=== PATIENT | male | born 1955 | race Caucasian/White ===

== ENCOUNTER 2017-12-08 22:41 | Inpatient (IN) | payer BC, MEDICARE ==
[2017-12-08] MEDS ORDERED: SODIUM CHLORIDE 0.9% 1,000 ML IV STA ×2 (23:20)
[2017-12-08] MEDS ORDERED: PIPERACILLIN-TAZOBACTAM 3.375 GM in DEXTROSE/WATER 1 50ML.BAG IVPB STA (23:49)
--- NOTE | 2017-12-08 23:56 | ED ---
General Adult HPI - General Chief complaint: Recheck/Abnormal Lab/Rx Stated complaint: Foot pain Time Seen by Provider: 12/08/17 22:50 Source: patient, RN notes reviewed, old records reviewed Mode of arrival: wheelchair Limitations: physical limitation - History of Present Illness Initial comments: 62-year-old male with history of left [id number] amputation, diabetic ulcer presents today with concerns of an ulcer and infection over his right toes. His was about to trim his toenails and noticed that his fifth toe was black. She also noticed ulceration in infection between the second and third toes. Patient has no fevers or chills. He reports some ankle pain and foot swelling. He states that he does have neuropathy doesn't have much pain in regards of the ulcerations.Patient denies any recent fever, chills, shortness of breath, chest pain, back pain, abdominal pain, nausea vomiting, numbness or tingling, dysuria or hematuria, constipation or diarrhea, headaches or visual changes, or any other current symptoms - Related Data Home Medications Medication Instructions Recorded Confirmed Atorvastatin [Lipitor] 10 mg PO HS 12/17/15 12/08/17 Famotidine [Pepcid] 20 mg PO BID 12/17/15 12/08/17 Insulin Aspart [NovoLOG] See Protocol SQ AC-TID 12/17/15 12/08/17 Insulin Detemir [Levemir] 18 unit SQ HS 12/17/15 12/08/17 Meloxicam [Mobic] 7.5 mg PO DAILY 12/17/15 12/08/17 Metoprolol Tartrate [Lopressor] 25 mg PO BID 12/17/15 12/08/17 Levothyroxine Sodium [Synthroid] 137 mcg PO DAILY 12/08/17 12/08/17 Lisinopril [Zestril] 10 mg PO DAILY 12/08/17 12/08/17 amLODIPine [Norvasc] 5 mg PO DAILY 12/08/17 12/08/17 metFORMIN HCL 1,000 mg PO BID 12/08/17 12/08/17 Allergies Allergy/AdvReac Type Severity Reaction Status Date / Time No Known Allergies Allergy Verified 12/08/17 23:27 Review of Systems ROS Statement: Those systems with pertinent positive or pertinent negative responses have been documented in the HPI. ROS Other: All systems not noted in ROS Statement are negative. Past Medical History Past Medical History: CVA/TIA, Diabetes Mellitus, Hyperlipidemia, Hypertension, Memory Impairment, Osteoarthritis (OA), Thyroid Disorder Additional Past Medical History / Comment(s): stroke age 51 left with short term memory problems. 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 Past Psychological History: Depression Smoking Status: Former smoker Past Alcohol Use History: Occasional Past Drug Use History: None Reported - Past Family History Mother Family Medical History: COPD Additional Family Medical History / Comment(s): age 83 from COPD Father Family Medical History: Coronary Artery Disease (CAD), Diabetes Mellitus, Myocardial Infarction ([place]) Additional Family Medical History / Comment(s): age 68 approx from [place] General Exam Limitations: physical limitation General appearance: alert, in no apparent distress Head exam: Present: atraumatic, normocephalic, normal inspection Eye exam: Present: normal appearance, PERRL, EOMI. Absent: scleral icterus, conjunctival injection, periorbital swelling ENT exam: Present: normal exam, normal oropharynx, mucous membranes moist Neck exam: Present: normal inspection. Absent: tenderness, meningismus, lymphadenopathy Respiratory exam: Present: normal lung sounds bilaterally. Absent: respiratory distress, wheezes, rales, rhonchi, stridor Cardiovascular Exam: Present: regular rate, normal rhythm, normal heart sounds. Absent: systolic murmur, diastolic murmur, rubs, gallop, clicks GI/Abdominal exam: Present: soft, normal bowel sounds. Absent: distended, tenderness, guarding, rebound, rigid Extremities exam: Present: full ROM, normal capillary refill. Absent: normal inspection, tenderness, pedal edema, joint swelling, calf tenderness Right Lower Leg exam: Present: normal inspection, full ROM Ankle exam: Present: swelling. Absent: normal inspection Foot/Toe exam: Present: swelling. Absent: normal inspection (Patient has a necrotic black and fifth toe. He 2 cm x 1 cm ulceration between the second and third digits. Culture obtained.), tenderness Neurovascular tendon exam: Present: no vascular compromise Gait: not tested/not observed Back exam: Present: normal inspection Neurological exam: Present: alert, oriented X3, CN II-XII intact Psychiatric exam: Present: normal affect, normal mood Skin exam: Present: warm, dry, intact, normal color. Absent: rash Course Vital Signs 12/08/17 12/08/17 12/09/17 22:45 22:56 00:42 Temperature 97.3 F L 98.6 F 97.8 F Pulse Rate 82 84 84 Respiratory 18 16 16 Rate Blood Pressure 179/86 159/75 147/81 O2 Sat by Pulse 99 96 96 Oximetry Medical Decision Making - Medical Decision Making Patient is a 62-year-old diabetic male presents emergency Department with a black and fifth toe and ulceration between a second and third digit. They just noticed this today will merit cutting his toenails. Patient does report that his toe was black and for the past 3 days. No fevers. Vital signs within normal limits. Lactic acid blood cultures obtained. Patient started on IV Zosyn. White blood count mildly elevated at 11,000. X-rays reviewed and showed no evidence of osteomyelitis. Patient's history of the left leg with a [id number] amputation related to old diabetic ulcers concern for worsening status. Patient later admitted to the hospital with consults to vascular surgery, infectious disease. Patient will also be started on vancomycin. All questions answered. Family agrees and understands treatment plan. - Lab Data Result diagrams: 12/09/17 00:30 12/09/17 00:30 Lab Results 12/09/17 12/09/17 Range/Units 00:30 00:30 WBC 11.7 H (3.8-10.6) k/uL RBC 3.85 L (4.30-5.90) m/uL Hgb 11.1 L (13.0-17.5) gm/dL Hct 33.4 L (39.0-53.0) % MCV 86.6 (80.0-100.0) fL MCH 28.8 (25.0-35.0) pg MCHC 33.3 (31.0-37.0) g/dL RDW 14.0 (11.5-15.5) % Plt Count 498 H (150-450) k/uL Neutrophils % 69 % Lymphocytes % 19 % Monocytes % 5 % Eosinophils % 6 % Basophils % 0 % Neutrophils # 8.0 H (1.3-7.7) k/uL Lymphocytes # 2.2 (1.0-4.8) k/uL Monocytes # 0.5 (0-1.0) k/uL Eosinophils # 0.7 (0-0.7) k/uL Basophils # 0.0 (0-0.2) k/uL Sodium 143 (137-145) mmol/L Potassium 3.9 (3.5-5.1) mmol/L Chloride 103 (98-107) mmol/L Carbon Dioxide 24 (22-30) mmol/L Anion Gap 16 mmol/L BUN 21 H (9-20) mg/dL Creatinine 0.90 (0.66-1.25) mg/dL Est GFR (CKD-EPI)AfAm >90 (>60 ml/min/1.73 sqM) Est GFR (CKD-EPI)NonAf >90 (>60 ml/min/1.73 sqM) Glucose 98 (74-99) mg/dL Calcium 9.8 (8.4-10.2) mg/dL Total Bilirubin 0.2 (0.2-1.3) mg/dL AST 22 (17-59) U/L ALT 22 (21-72) U/L Alkaline Phosphatase 78 (38-126) U/L C-Reactive Protein 10.0 H (<10.0) mg/L Total Protein 6.4 (6.3-8.2) g/dL Albumin 3.6 (3.5-5.0) g/dL - Radiology Data Radiology results: report reviewed X-ray of the foot shows no evidence of osteomyelitis. Disposition Clinical Impression: Gangrene of toe of right foot, Diabetic ulcer of right foot, Diabetes, Hx of BKA, Hypertension Disposition: ADMITTED IP TO THIS [facility] Condition: Stable Is patient prescribed a controlled substance at d/c from ED?: No If prescribed controlled substance>3 days was MAPS reviewed?: No When asked, does pt state using other controlled substances?: No Referrals: Myles Barnes MD [Primary Care Provider] - 1-2 days Time of Disposition: 01:54
--- NOTE | 2017-12-09 00:24 | XR ---
EXAMINATION TYPE: XR foot complete RT DATE OF EXAM: 12/09/2017 COMPARISON: NONE HISTORY: Diabetes and pain TECHNIQUE: 3 views FINDINGS: There is old ununited fracture distal fifth metatarsal. I see no acute fracture nor disloca tion. There is mild hammertoe deformity. There is a plantar calcaneal spur. I see no focal bone destr uction. IMPRESSION: No acute abnormality of the right foot. No sign of osteomyelitis.
--- NOTE | 2017-12-09 00:25 | XR ---
EXAMINATION TYPE: XR ankle complete RT DATE OF EXAM: 12/09/2017 COMPARISON: NONE HISTORY: Diabetes and pain TECHNIQUE: 3 views FINDINGS: Ankle mortise is anatomic. There is some soft tissue swelling around the ankle joint. I see no fracture. IMPRESSION: Soft tissue swelling. No fracture seen. Plantar calcaneal spur.
[2017-12-09 01:15] LABS: Basophils % (A) 0 %; Eosinophils # (A) 0.7 k/uL (0-0.7); Eosinophils % (A) 6 %; HCT 33.4 % (39.0-53.0); HGB 11.1 gm/dL (13.0-17.5); Lymphocytes # (A) 2.2 k/uL (1.0-4.8); Lymphocytes % (A) 19 %; MCH 28.8 pg (25.0-35.0); MCHC 33.3 g/dL (31.0-37.0); MCV 86.6 fL (80.0-100.0); Mean Platelet Volume 7.5; Monocytes # (A) 0.5 k/uL (0-1.0); Monocytes % (A) 5 %; Neutrophils % (A) 69 %; Platelet Count 498 k/uL (150-450); RBC 3.85 m/uL (4.30-5.90); WBC 11.7 k/uL (3.8-10.6)
[2017-12-09 01:33] LABS: ALT 22 U/L (21-72); AST 22 U/L (17-59); Albumin 3.6 g/dL (3.5-5.0); Alkaline Phosphatase 78 U/L (38-126); Anion Gap 16 mmol/L; Blood Urea Nitrogen 21 mg/dL (9-20); Calcium 9.8 mg/dL (8.4-10.2); Carbon Dioxide 24 mmol/L (22-30); Chloride 103 mmol/L (98-107); Glucose 98 mg/dL (74-99); Potassium 3.9 mmol/L (3.5-5.1); Sodium 143 mmol/L (137-145); Total Bilirubin 0.2 mg/dL (0.2-1.3); Total Protein 6.4 g/dL (6.3-8.2)
[2017-12-09] MEDS ORDERED: oxyCODONE-APAP 5-325MG 1 EACH TAB PO PRN (01:56)
[2017-12-09] MEDS ORDERED: VANCOMYCIN IV PER PHARMACY 1 EACH MISC MISCELLANE PRN (01:56)
[2017-12-09] MEDS ORDERED: IBUPROFEN 400 MG TAB PO PRN (01:56)
[2017-12-09] MEDS ORDERED: KETOROLAC 30 MG/ML 1 ML VIAL IVP PRN (01:56)
[2017-12-09] MEDS ORDERED: NALOXONE 0.4 MG/ML 1 ML VIAL IV PRN ×2 (01:56→15:29)
[2017-12-09] MEDS ORDERED: ONDANSETRON 4 MG/2 ML VIAL IVP PRN (01:56)
[2017-12-09 02:06] LABS: Erythrocyte Sedimentation Rate 51 mm/hr (0-15)
[2017-12-09] MEDS: SODIUM CHLORIDE 0.9% 1,000 ML IV SCH ×3 (04:02→18:01)
[2017-12-09] MEDS: VANCOMYCIN 1,250 MG in SODIUM CHLORIDE 0.9% 250 ML IVPB SCH ×2 (04:27→15:39)
[2017-12-09] MEDS: LEVOTHYROXINE 137 MCG TAB PO SCH (05:56)
[2017-12-09 07:26] LABS: Glucose,Whole Blood 354 mg/dL (75-99)
[2017-12-09] MEDS: metFORMIN 500 MG TAB PO SCH ×2 (07:56→17:58)
[2017-12-09] MEDS: PIPERACILLIN-TAZOBACTAM 3.375 GM in DEXTROSE/WATER 1 50ML.BAG IVPB SCH ×3 (07:56→23:56)
[2017-12-09] MEDS: MELOXICAM 7.5 MG TAB PO SCH (07:56)
[2017-12-09] MEDS: INSULIN ASPART 100 UNIT/ML 1 ML 10 ML VIAL SQ SCH ×5 (07:56→22:42)
[2017-12-09] MEDS: FAMOTIDINE 20 MG TAB PO SCH ×2 (07:56→22:42)
[2017-12-09] MEDS: amLODIPine 5 MG TAB PO SCH (07:56)
[2017-12-09] MEDS: METOPROLOL TARTRATE 25 MG TAB PO SCH ×2 (07:57→22:42)
[2017-12-09] MEDS: LISINOPRIL 10 MG TAB PO SCH (07:57)
[2017-12-09 11:59] LABS: Glucose,Whole Blood 208 mg/dL (75-99)
--- NOTE | 2017-12-09 12:48 | P.GSCN ---
History of Present Illness History of present illness: 52-year-old diabetic male history of 4 diabetes, history of peripheral neuropathy, patient came to the emergency room with history of 4 gangrene changes noted on the right foot fifth toe, also noted some ulceration with infection of the second and third toe. Patient has been getting prosthesis for the left below-knee amputation. Medical history history of diabetes, history of 4 hypertension, history of CVA in the past, Surgical history patient had a cholecystectomy, history of for left below-knee amputation 2008 Neck examination supple no bruit appreciated Chest is clear first and second sound normal Abdomen soft nontender vascular examination brachial radial and femoral pulses are palpable bilateral dorsal pedis post tibial is not palpable on the right left BK stump is healing there is a gangrene changes noted on the right foot fifth toe and some ulceration noted on the second third toe Plan is angiogram of the right leg, IV antibiotic and local wound care. Follow with you thank you Past Medical History Past Medical History: CVA/TIA, Diabetes Mellitus, Hyperlipidemia, Hypertension, Memory Impairment, Osteoarthritis (OA), Thyroid Disorder Additional Past Medical History / Comment(s): stroke age 51 left with short term memory problems. History of Any Multi-Drug Resistant Organisms: MRSA Year Discovered:: 12/17/15 MDRO Source:: Left Leg Past Surgical History: Cholecystectomy, Ear Surgery Additional Past Surgical History / Comment(s): Left BKA 2008 r/t gangrene Past Anesthesia/Blood Transfusion Reactions: Previous Problems w/ Anesthesia Additional Past Anesthesia/Blood Transfusion Reaction / Comm: states had problems with anesthesia after gall bladder surgery, problems waking up or breathing cessation. Past Psychological History: Depression Additional Psychological History / Comment(s): no current problems Smoking Status: Former smoker Past Alcohol Use History: Occasional Past Drug Use History: None Reported - Past Family History Mother Family Medical History: COPD Additional Family Medical History / Comment(s): age 83 from COPD Father Family Medical History: Coronary Artery Disease (CAD), Diabetes Mellitus, Myocardial Infarction ([place]) Additional Family Medical History / Comment(s): age 68 approx from [place] Medications and Allergies Home Medications Medication Instructions Recorded Confirmed Type Atorvastatin [Lipitor] 10 mg PO HS 12/17/15 12/08/17 History Famotidine [Pepcid] 20 mg PO BID 12/17/15 12/08/17 History Insulin Aspart [NovoLOG] See Protocol SQ AC-TID 12/17/15 12/08/17 History Insulin Detemir [Levemir] 18 unit SQ HS 12/17/15 12/08/17 History Meloxicam [Mobic] 7.5 mg PO DAILY 12/17/15 12/08/17 History Metoprolol Tartrate [Lopressor] 25 mg PO BID 12/17/15 12/08/17 History Levothyroxine Sodium [Synthroid] 137 mcg PO DAILY 12/08/17 12/08/17 History Lisinopril [Zestril] 10 mg PO DAILY 12/08/17 12/08/17 History amLODIPine [Norvasc] 5 mg PO DAILY 12/08/17 12/08/17 History metFORMIN HCL 1,000 mg PO BID 12/08/17 12/08/17 History Allergies Allergy/AdvReac Type Severity Reaction Status Date / Time No Known Allergies Allergy Verified 12/08/17 23:27 Surgical - Exam Vital Signs Temp Pulse Resp BP Pulse Ox 97.3 F L 82 18 179/86 99 12/08/17 22:45 12/08/17 22:45 12/08/17 22:45 12/08/17 22:45 12/08/17 22:45 Results - Labs 12/09/17 00:30 12/09/17 00:30 Abnormal Lab Results - Last 24 Hours (Table) 12/09/17 12/09/17 12/09/17 Range/Units 00:30 00:30 07:13 WBC 11.7 H (3.8-10.6) k/uL RBC 3.85 L (4.30-5.90) m/uL Hgb 11.1 L (13.0-17.5) gm/dL Hct 33.4 L (39.0-53.0) % Plt Count 498 H (150-450) k/uL Neutrophils # 8.0 H (1.3-7.7) k/uL ESR 51 H (0-15) mm/hr BUN 21 H (9-20) mg/dL POC Glucose (mg/dL) 354 H (75-99) mg/dL C-Reactive Protein 10.0 H (<10.0) mg/L 12/09/17 Range/Units 11:55 WBC (3.8-10.6) k/uL RBC (4.30-5.90) m/uL Hgb (13.0-17.5) gm/dL Hct (39.0-53.0) % Plt Count (150-450) k/uL Neutrophils # (1.3-7.7) k/uL ESR (0-15) mm/hr BUN (9-20) mg/dL POC Glucose (mg/dL) 208 H (75-99) mg/dL C-Reactive Protein (<10.0) mg/L Microbiology - Last 24 Hours (Table) 12/09/17 00:30 Wound Culture - Preliminary Foot - Right Diabetes panel 12/09/17 Range/Units 00:30 Sodium 143 (137-145) mmol/L Potassium 3.9 (3.5-5.1) mmol/L Chloride 103 (98-107) mmol/L Carbon Dioxide 24 (22-30) mmol/L BUN 21 H (9-20) mg/dL Creatinine 0.90 (0.66-1.25) mg/dL Glucose 98 (74-99) mg/dL Calcium 9.8 (8.4-10.2) mg/dL AST 22 (17-59) U/L ALT 22 (21-72) U/L Alkaline Phosphatase 78 (38-126) U/L Total Protein 6.4 (6.3-8.2) g/dL Albumin 3.6 (3.5-5.0) g/dL Calcium panel 12/09/17 Range/Units 00:30 Calcium 9.8 (8.4-10.2) mg/dL Albumin 3.6 (3.5-5.0) g/dL Pituitary panel 12/09/17 Range/Units 00:30 Sodium 143 (137-145) mmol/L Potassium 3.9 (3.5-5.1) mmol/L Chloride 103 (98-107) mmol/L Carbon Dioxide 24 (22-30) mmol/L BUN 21 H (9-20) mg/dL Creatinine 0.90 (0.66-1.25) mg/dL Glucose 98 (74-99) mg/dL Calcium 9.8 (8.4-10.2) mg/dL Adrenal panel 12/09/17 Range/Units 00:30 Sodium 143 (137-145) mmol/L Potassium 3.9 (3.5-5.1) mmol/L Chloride 103 (98-107) mmol/L Carbon Dioxide 24 (22-30) mmol/L BUN 21 H (9-20) mg/dL Creatinine 0.90 (0.66-1.25) mg/dL Glucose 98 (74-99) mg/dL Calcium 9.8 (8.4-10.2) mg/dL Total Bilirubin 0.2 (0.2-1.3) mg/dL AST 22 (17-59) U/L ALT 22 (21-72) U/L Alkaline Phosphatase 78 (38-126) U/L Total Protein 6.4 (6.3-8.2) g/dL Albumin 3.6 (3.5-5.0) g/dL
[2017-12-09] MEDS ORDERED: LACTULOSE 20 GM/30 ML CUP PO PRN (15:29)
[2017-12-09] MEDS ORDERED: CALCIUM CARBONATE 500 MG CHEWABLE PO PRN (15:29)
[2017-12-09] MEDS ORDERED: MAGNESIUM HYDROXIDE 2,400 MG/10 ML CUP PO PRN (15:29)
[2017-12-09] MEDS: ACETAMINOPHEN TAB 325 MG TAB PO PRN (16:55)
[2017-12-09 17:16] LABS: Glucose,Whole Blood 370 mg/dL (75-99)
--- NOTE | 2017-12-09 18:15 | HP ---
HISTORY AND PHYSICAL DATE OF SERVICE: 12/09/17 PRESENTING COMPLAINT: Right toe wounds. HISTORY OF PRESENTING COMPLAINT: This is a pleasant 62-year-old patient Dr. Barnes who presented here with his . Chronic stable medical conditions include diabetes, hyperlipidemia, hypertension, osteoarthritis, hypothyroid. The patient is hard of hearing and also has left below- knee amputation. The patient's was going to clip his nails and discovered that he had gangrene of the right toe and also wound, a kissing wound, between the right 2nd and 3rd toe. The patient states he has only noticed that for about 3 to 4 days but probably has had it much longer, some pain is present. Denies any obvious fever. Patient admitted for the same. Patient has a prosthesis on the left leg. REVIEW OF SYSTEMS: CONSTITUTIONAL: None. HEENT: Hard of hearing. RESPIRATORY: None. CARDIOVASCULAR: None. GASTROINTESTINAL: None. GENITOURINARY: None. MUSCULOSKELETAL: Pain in the joints. DERMATOLOGICAL: As above. LYMPHATICS: None. PSYCHIATRY: Occasionally forgetful from the stroke. NEUROLOGICAL: None. EXTREMITIES: Left below-knee amputation. PAST MEDICAL HISTORY: Stroke leading to some memory impairment, diabetes, hypertension, hyperlipidemia, osteoarthritis, hypothyroid, hard of hearing. PAST SURGICAL HISTORY: Cholecystectomy, left below-knee 2009 due to gangrene. SOCIAL HISTORY: The patient smoked 2 to 3 packs a day for about 40 years, stopped in 2008. The patient used to work as a jet engine mechanic. , alcohol occasionally. FAMILY HISTORY: COPD. HOME MEDICATIONS: Norvasc 5 mg a day, Zestril 10 mg a day, Pepcid 20 mg b.i.d., Lipitor 10 mg q.h.s., Mobic 7.5 p.o. daily, Synthroid 137 mcg p.o. daily, Levemir 18 units subcu q.h.s., NovoLog before meals t.i.d., metformin 1000 mg p.o. b.i.d., Lopressor 25 p.o. b.i.d. ALLERGIES: None. PHYSICAL EXAMINATION: VITAL SIGNS ON PRESENTATION: Temperature 97.3, pulse 82, respiratory 18, blood pressure 139/86, repeat 159/75, pulse ox 99% on room air. GENERAL APPEARANCE: Average built, sitting up, tired appearing. EYES: Pupils equal. Conjunctivae normal. HEENT: External appearance of nose and ears normal. Oral cavity normal. NECK: JVD not raised. Mass not palpable. RESPIRATORY: Effort normal, lungs decreased breath sounds. CARDIOVASCULAR: First and second sounds, no edema. ABDOMEN: Soft, nontender. Liver and spleen not palpable. LYMPHATIC: No lymph node palpable in neck or axillae. PSYCHIATRY: Alert and oriented x3. Mood and affect normal. NEUROLOGICAL: Pupils equal. Cranial nerves grossly intact. Power grossly intact. EXTREMITIES: Left below-knee amputation. The patient has a prosthesis. Right foot, patient has got severe onychomycosis of the nails. There is a gangrenous changes of the right little toe and also macerated ulcer, a kissing-type, adjoining the 2nd and 3rd toe in the space in between that. INVESTIGATIONS: White count 11.7, hemoglobin 11.1, platelets 498. Potassium 3.9, BUN 21, creatinine 0.9. ASSESSMENT: 1. Acute gangrene of the right foot little toe and cellulitis/wound infected, purulent, between the right 2nd and 3rd toe. 2. Severe onychomycosis of the toenails. 3. Diabetes mellitus type 2, chronically on insulin. 4. Hyperlipidemia. 5. Hypertension. 6. Primary osteoarthritis. 7. Hypothyroid. 8. Left below-knee amputation. 9. Chronic hard of hearing. PLAN: The patient is put on IV Zosyn and vancomycin. Consultation was made to Dr. Ugarte from [facility]. Accu-Cheks will be followed. The patient will probably need a vascular study. Care was discussed with the patient and . Questions were answered. Local wound care per Dr. Brian and Dr. Ugarte. MMODL / IJN: [id number] /
[2017-12-09] MEDS: ALPRAZolam 0.25 MG TAB PO PRN (19:38)
[2017-12-09] MEDS ORDERED: MELATONIN 3 MG TABLET PO PRN (21:00)
[2017-12-09] MEDS: INSULIN DETEMIR 100 UNIT/ML 10 ML VIAL SQ SCH (22:42)
[2017-12-09] MEDS: ATORVASTATIN 10 MG TAB PO SCH (22:42)
[2017-12-09 22:58] LABS: Glucose,Whole Blood 242 mg/dL (75-99)
--- NOTE | 2017-12-09 23:14 | P.CONS ---
History of Present Illness - Reason for Consult Consult date: 12/09/17 - Chief Complaint ulcer right foot - History of Present Illness 62 year old male with a history of peripherial vascular disease and left below- the-knee amputation in 2007 due to his severe peripheral vascular disease. It is related at that time with the help of the patient's about his history, that he had severe peripheral vascular disease that was caused from his tobacco use. After his amputation he stopped his heavy tobacco use and also stopped his alcohol abuse. Since that time he's had an improvement of his status. However recently the went to do some foot care and noticed that there was some gangrenous changes to the right foot fifth toe into the interspace between the third and fourth toe. With that he was brought in the hospital for further intervention. He has been seen by vascular surgery and angiography has been scheduled to evaluate the blood flow to the right leg since the surgical plan can be devised. Primary goal will be to salvage the right lower extremity, double amputees often have great difficulty with ambulation and often in a relatively short period of time. Antibiotic therapy to be advised. Review of Systems HEENT:Denies headache or acute visual change. Denies sinus or mouth discomforts. Denies neck stiffness or pain. Denies significant oral cavity pain. Denies difficulty on swallowing. Lungs: Denies significant shortness of breath, cough, sputum production, or hemoptysis. Cardiovascular: Denies significant shortness of breath, chest pain, chest wall pain, orthopnea, dyspnea on exertion, syncope Gastrointestinal:Denies nausea, vomiting, diarrhea, constipation, hematemesis, melena, hematochezia. No no significant change of bowel habit noticed. Musculoskeletal: denies significant myalgias or arthralgias. No new joint swelling. Denies new back pain. Skin: As per the HPI gangrene right foot Neuro: Denies headache or visual change. In the last few days having increasing difficulties ambulation because of the new changes to his right foot. Patient's relates that the patient has had some Psychiatric:Denies anxiety or depression. Endocrine: Significant fatigue and weight loss Past Medical History Past Medical History: CVA/TIA, Diabetes Mellitus, Hyperlipidemia, Hypertension, Memory Impairment, Osteoarthritis (OA), Thyroid Disorder Additional Past Medical History / Comment(s): stroke age 51 left with short term memory problems. History of Any Multi-Drug Resistant Organisms: MRSA Year Discovered:: 12/17/15 MDRO Source:: Left Leg Past Surgical History: Cholecystectomy, Ear Surgery Additional Past Surgical History / Comment(s): Left BKA 2009 r/t gangrene Past Anesthesia/Blood Transfusion Reactions: Previous Problems w/ Anesthesia Additional Past Anesthesia/Blood Transfusion Reaction / Comm: states had problems with anesthesia after gall bladder surgery, problems waking up or breathing cessation. Past Psychological History: Depression Additional Psychological History / Comment(s): lives with the and the family home. Medically disabled. Tobacco smoker until 2007. Alcohol abuse until 2007 which is when he had a leg amputation. Pet dog in the home. No experience. 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 Smoking Status: Former smoker Past Alcohol Use History: Occasional Past Drug Use History: None Reported - Past Family History Mother Family Medical History: COPD Additional Family Medical History / Comment(s): age 83 from COPD Father Family Medical History: Coronary Artery Disease (CAD), Diabetes Mellitus, Myocardial Infarction (DE) Additional Family Medical History / Comment(s): age 68 approx from [place] Medications and Allergies Home Medications and Allergies Comment(s): Current Medications Acetaminophen (Tylenol Tab) 650 mg PO Q6HR PRN PRN Reason: Mild Pain or Fever > 100.5 Last Admin: 12/09/17 16:55 Dose: 650 mg Alprazolam (Xanax) 0.25 mg PO Q6HR PRN PRN Reason: Anxiety Last Admin: 12/09/17 19:38 Dose: 0.25 mg Amlodipine Besylate (Norvasc) 5 mg PO DAILY [facility] Last Admin: 12/09/17 07:56 Dose: 5 mg Atorvastatin Calcium (Lipitor) 10 mg PO HS [facility] Last Admin: 12/09/17 22:42 Dose: 10 mg Calcium Carbonate/Glycine (Tums) 1,000 mg PO Q4HR PRN PRN Reason: Dyspepsia Famotidine (Pepcid) 20 mg PO BID [facility] Last Admin: 12/09/17 22:42 Dose: 20 mg Piperacillin/Tazobactam/ (Dextrose 3.375 gm/ IV Solution) 50 mls @ 12.5 mls/hr IVPB Q8H [facility] Last Admin: 12/09/17 16:56 Dose: 12.5 mls/hr Sodium Chloride (Saline 0.9%) 1,000 mls @ 120 mls/hr IV .Q8H20M [facility] Last Admin: 12/09/17 18:01 Dose: 120 mls/hr Vancomycin HCl 1,250 mg/ (Sodium Chloride) 250 mls @ 125 mls/hr IVPB Q12H [facility] Last Admin: 12/09/17 15:39 Dose: 125 mls/hr Insulin Aspart (Novolog) 0 unit SQ ACHS JOANN PRN Reason: Protocol Last Admin: 12/09/17 22:42 Dose: 3 unit Insulin Aspart (Novolog) 4 unit SQ AC-TID [facility] Last Admin: 12/09/17 17:58 Dose: 4 unit Insulin Detemir (Levemir) 18 unit SQ HS [facility] Last Admin: 12/09/17 22:42 Dose: 18 unit Ketorolac Tromethamine (Toradol) 30 mg IVP Q6HR PRN PRN Reason: Moderate Pain Stop: 12/14/17 01:57 Lactulose (Cephulac) 20 gm PO DAILY PRN PRN Reason: Constipation Levothyroxine Sodium (Synthroid) 137 mcg PO 0630 [facility] Last Admin: 12/09/17 05:56 Dose: 137 mcg Lisinopril (Zestril) 10 mg PO DAILY [facility] Last Admin: 12/09/17 07:57 Dose: 10 mg Magnesium Hydroxide (Milk Of Magnesia) 2,400 mg PO DAILY PRN PRN Reason: Constipation Melatonin (Melatonin) 3 mg PO HS PRN PRN Reason: Insomnia Meloxicam (Mobic) 7.5 mg PO DAILY [facility] Last Admin: 12/09/17 07:56 Dose: 7.5 mg Metformin HCl (Glucophage) 1,000 mg PO AC-BID [facility] Last Admin: 12/09/17 17:58 Dose: 1,000 mg Metoprolol Tartrate (Lopressor) 25 mg PO BID [facility] Last Admin: 12/09/17 22:42 Dose: 25 mg Naloxone HCl (Narcan) 0.2 mg IV Q2M PRN PRN Reason: Opioid Reversal Ondansetron HCl (Zofran) 4 mg IVP Q8HR PRN PRN Reason: Nausea And Vomiting Oxycodone/Acetaminophen (Percocet 5-325) 1 each PO Q4HR PRN PRN Reason: Severe Pain Home Medications Medication Instructions Recorded Confirmed Type Atorvastatin [Lipitor] 10 mg PO HS 12/17/15 12/08/17 History Famotidine [Pepcid] 20 mg PO BID 12/17/15 12/08/17 History Insulin Aspart [NovoLOG] See Protocol SQ AC-TID 12/17/15 12/08/17 History Insulin Detemir [Levemir] 18 unit SQ HS 12/17/15 12/08/17 History Meloxicam [Mobic] 7.5 mg PO DAILY 12/17/15 12/08/17 History Metoprolol Tartrate [Lopressor] 25 mg PO BID 12/17/15 12/08/17 History Levothyroxine Sodium [Synthroid] 137 mcg PO DAILY 12/08/17 12/08/17 History Lisinopril [Zestril] 10 mg PO DAILY 12/08/17 12/08/17 History amLODIPine [Norvasc] 5 mg PO DAILY 12/08/17 12/08/17 History metFORMIN HCL 1,000 mg PO BID 12/08/17 12/08/17 History Allergies Allergy/AdvReac Type Severity Reaction Status Date / Time No Known Allergies Allergy Verified 12/08/17 23:27 Physical Exam Vitals: Vital Signs Temp Pulse Pulse Resp BP BP Pulse Ox 12/09/17 15:00 98.9 F 89 16 124/69 95 12/09/17 07:00 97.1 F L 101 H 20 139/76 95 12/09/17 03:30 97.2 F L 92 18 153/82 96 12/09/17 03:13 98.7 F 92 16 172/83 96 12/09/17 01:55 97.9 F 86 16 139/80 96 12/09/17 00:42 97.8 F 84 16 147/81 96 Intake and Output 12/09/17 12/09/17 12/10/17 14:59 22:59 06:59 Intake Total 200 Balance 200 Intake: Oral 200 Other: # Voids 1 # Bowel Movements 0 Weight 73.482 kg 62-year-old male who looks older than his stated age HEENT: Anicteric conjunctiva are pink and moist nasal mucosa grossly intact without significant lesions, there is no thrush. Poor dentition Neck: The neck is supple without significant lymphadenopathy or thyromegaly. Lungs: Symmetrical air entry with evidence of some expiratory wheezes but no vaishnavi bronchial sounds no dullness or egophony Heart: Regular rate and rhythm with an audible S1-S2, no S3 loud S4 There is no significant murmur click or rub, PMI was nondisplaced. Abdomen: Mildly obese Positive bowel sounds soft and nontender without palpable masses or organomegaly. There was no guarding or rebound. Extremities: The upper extremities have excellent pulses they are symmetric, no significant petechiae or telangiectasia. No splinter hemorrhages were noted. Left lower extremity residual limb is without ulceration. Right lower extremity has evidence of the gangrenous changes to the fifth toe as well as interspaced between toes 3 and 4 with some mild erythema without purulent drainage Neuro: Patient is awake alert oriented to person, is aware of his child and grandchild in the room but is not doing well with time and his exact location. He is able to move upper and lower extremities on command Results CBC & Chem 7: 12/09/17 00:30 12/09/17 00:30 Labs: Abnormal Lab Results - Last 24 Hours (Table) 12/09/17 12/09/17 12/09/17 Range/Units 00:30 00:30 07:13 WBC 11.7 H (3.8-10.6) k/uL RBC 3.85 L (4.30-5.90) m/uL Hgb 11.1 L (13.0-17.5) gm/dL Hct 33.4 L (39.0-53.0) % Plt Count 498 H (150-450) k/uL Neutrophils # 8.0 H (1.3-7.7) k/uL ESR 51 H (0-15) mm/hr BUN 21 H (9-20) mg/dL POC Glucose (mg/dL) 354 H (75-99) mg/dL C-Reactive Protein 10.0 H (<10.0) mg/L 12/09/17 12/09/17 12/09/17 Range/Units 11:55 17:14 22:37 WBC (3.8-10.6) k/uL RBC (4.30-5.90) m/uL Hgb (13.0-17.5) gm/dL Hct (39.0-53.0) % Plt Count (150-450) k/uL Neutrophils # (1.3-7.7) k/uL ESR (0-15) mm/hr BUN (9-20) mg/dL POC Glucose (mg/dL) 208 H 370 H 242 H (75-99) mg/dL C-Reactive Protein (<10.0) mg/L Microbiology - Last 24 Hours (Table) 12/09/17 00:30 Gram Stain - Preliminary Foot - Right Wound Culture - Preliminary Laboratory Results WBC 11.7 k/uL (3.8-10.6) H 12/09/17 00:30 RBC 3.85 m/uL (4.30-5.90) L 12/09/17 00:30 Hgb 11.1 gm/dL (13.0-17.5) L 12/09/17 00:30 Hct 33.4 % (39.0-53.0) L 12/09/17 00:30 MCV 86.6 fL (80.0-100.0) 12/09/17 00:30 MCH 28.8 pg (25.0-35.0) 12/09/17 00:30 MCHC 33.3 g/dL (31.0-37.0) 12/09/17 00:30 RDW 14.0 % (11.5-15.5) 12/09/17 00:30 Plt Count 498 k/uL (150-450) H 12/09/17 00:30 Neutrophils % 69 % 12/09/17 00:30 Lymphocytes % 19 % 12/09/17 00:30 Monocytes % 5 % 12/09/17 00:30 Eosinophils % 6 % 12/09/17 00:30 Basophils % 0 % 12/09/17 00:30 Neutrophils # 8.0 k/uL (1.3-7.7) H 12/09/17 00:30 Lymphocytes # 2.2 k/uL (1.0-4.8) 12/09/17 00:30 Monocytes # 0.5 k/uL (0-1.0) 12/09/17 00:30 Eosinophils # 0.7 k/uL (0-0.7) 12/09/17 00:30 Basophils # 0.0 k/uL (0-0.2) 12/09/17 00:30 ESR 51 mm/hr (0-15) H 12/09/17 00:30 Sodium 143 mmol/L (137-145) 12/09/17 00:30 Potassium 3.9 mmol/L (3.5-5.1) 12/09/17 00:30 Chloride 103 mmol/L (98-107) 12/09/17 00:30 Carbon Dioxide 24 mmol/L (22-30) 12/09/17 00:30 Anion Gap 16 mmol/L 12/09/17 00:30 BUN 21 mg/dL (9-20) H 12/09/17 00:30 Creatinine 0.90 mg/dL (0.66-1.25) 12/09/17 00:30 Est GFR (CKD-EPI)AfAm >90 (>60 ml/min/1.73 sqM) 12/09/17 00:30 Est GFR (CKD-EPI)NonAf >90 (>60 ml/min/1.73 sqM) 12/09/17 00:30 Glucose 98 mg/dL (74-99) 12/09/17 00:30 POC Glucose (mg/dL) 242 mg/dL (75-99) H 12/09/17 22:37 POC Glu Weight Tester ID Nancy Solitario 12/09/17 22:37 Calcium 9.8 mg/dL (8.4-10.2) 12/09/17 00:30 Total Bilirubin 0.2 mg/dL (0.2-1.3) 12/09/17 00:30 AST 22 U/L (17-59) 12/09/17 00:30 ALT 22 U/L (21-72) 12/09/17 00:30 Alkaline Phosphatase 78 U/L (38-126) 12/09/17 00:30 C-Reactive Protein 10.0 mg/L (<10.0) H 12/09/17 00:30 Total Protein 6.4 g/dL (6.3-8.2) 12/09/17 00:30 Albumin 3.6 g/dL (3.5-5.0) 12/09/17 00:30 Microbiology 12/09/17 00:30 Foot - Right Gram Stain - Preliminary 12/09/17 00:30 Foot - Right Wound Culture - Preliminary Assessment and Plan (1) Gangrene of toe of right foot Narrative/Plan: 62-year-old male has a history of prior heavy tobacco use and alcohol use did have a left [id number] amputation done in 2007 which point in time he discontinued alcohol and tobacco use. His and modestly well over time but now developed evidence of gangrenous changes of the fifth toe and interspace between to screen for on the right foot. He has been seen by vascular surgery. The case is discussed with them. The plan is for angiography to evaluate his vessels to ensure that there is adequate blood flow before further surgical plans to the foot are provided. Overall goal is foot salvage given the left [id number] amputation has occurred. Amputation of more than just told the right foot could result in lack of ability to ambulate which would then have a direct impact on his longevity. Antibiotic therapy as well as Zosyn and vancomycin until we have further data. The course of antibiotic therapy after discharge will be determined by his response to therapy and the extent of the involvement of the infection after surgical interventions. Improve glucose control, adequate protein intake and a multivitamin along be helpful. Current Visit: Yes Status: Acute Code(s): I96 - GANGRENE, NOT ELSEWHERE CLASSIFIED SNOMED Code(s): 80498580827717681 (2) Diabetic ulcer of right foot Current Visit: Yes Status: Acute Code(s): E11.621 - TYPE 2 DIABETES MELLITUS WITH FOOT ULCER; L97.519 - NON-PRS CHRONIC ULCER OTH PRT RIGHT FOOT W UNSP SEVERITY SNOMED Code(s): 159009085 (3) Peripheral vascular disease in diabetes mellitus Current Visit: Yes Status: Acute Code(s): E11.51 - TYPE 2 DIABETES W DIABETIC PERIPHERAL ANGIOPATH W/O GANGRENE SNOMED Code(s): 59742667
[2017-12-10] MEDS: SODIUM CHLORIDE 0.9% 1,000 ML IV SCH ×3 (02:25→23:15)
[2017-12-10] MEDS: VANCOMYCIN 1,250 MG in SODIUM CHLORIDE 0.9% 250 ML IVPB SCH ×2 (04:21→16:42)
[2017-12-10] MEDS: PIPERACILLIN-TAZOBACTAM 3.375 GM in DEXTROSE/WATER 1 50ML.BAG IVPB SCH ×3 (07:40→23:09)
[2017-12-10] MEDS: LEVOTHYROXINE 137 MCG TAB PO SCH (07:42)
[2017-12-10] MEDS: metFORMIN 500 MG TAB PO SCH (07:42)
[2017-12-10] MEDS: FAMOTIDINE 20 MG TAB PO SCH ×2 (07:42→19:53)
[2017-12-10] MEDS: LISINOPRIL 10 MG TAB PO SCH (07:43)
[2017-12-10] MEDS: MELOXICAM 7.5 MG TAB PO SCH (07:43)
[2017-12-10] MEDS: METOPROLOL TARTRATE 25 MG TAB PO SCH ×2 (07:43→19:54)
[2017-12-10] MEDS: amLODIPine 5 MG TAB PO SCH (07:43)
[2017-12-10] MEDS: INSULIN ASPART 100 UNIT/ML 1 ML 10 ML VIAL SQ SCH ×8 (07:46→22:30)
[2017-12-10 07:49] LABS: Glucose,Whole Blood 86 mg/dL (75-99)
[2017-12-10] MEDS ORDERED: SODIUM CHLORIDE 0.9% 500 ML IV ONE (09:12)
[2017-12-10] MEDS ORDERED: LIDOCAINE 2% INJ 20 MG/ML SQ ONE (09:16)
[2017-12-10] MEDS ORDERED: MIDAZOLAM 2 MG/2 ML VIAL IVP ONE (09:16)
[2017-12-10] MEDS ORDERED: IODIXANOL 320 MG/ML 100 ML INTRAARTER ONE (09:36)
--- NOTE | 2017-12-10 10:46 | OP ---
OPERATIVE REPORT PREOP DIAGNOSES: Gangrene right foot toes. PROCEDURE PERFORMED: Right leg angiogram. SEDATION: Conscious sedation time is 20 minutes. OPERATIVE PROCEDURE: This patient came with gangrene of the 5th toe and ulcer on the 2nd and 3rd toe. The patient had a left BK amputation done in the past. On examination, femorals are palpable, posterior dorsalis pedis is not palpable. Patient brought to the roofing laborer. Right groin was prepped and draped in the usual sterile manner. 1% lidocaine was given and we gave conscious sedation. Micropuncture introduced right common femoral artery. Micropuncture guide wire was passed and 4 Malawian dilator advanced on top of the guidewire, flushed with heparin saline and with hand injection on the tip of the right leg angiogram was performed. Right common iliac, external iliac, and common femoral was visualized which was patent. Profunda was found to be patent. Superficial femoral artery was found to be patent. The patient has a severe atherosclerosis occlusive disease involving the popliteal and tibioperoneal trunk. Anterior tibial was found to be patent. The posterior tibial has proximally narrowing and some atherosclerosis disease proximally which is opacified at the lower 1/3 of the leg. Anterior tibial is patent all the way down to the foot. Peroneal is patent. IMPRESSION: Severe atherosclerosis occlusive disease of the popliteal and tibioperoneal trunk with narrowing of the posterior tibial to the upper 1/3 of the leg. Sheath was removed. Pressure was held. Patient tolerated the procedure well. PLAN: We will do venous mapping and we will discuss if the patient can be treated with atherectomy. MMODL / IJN: [id number] /
[2017-12-10 12:04] LABS: Glucose,Whole Blood 63 mg/dL (75-99)
[2017-12-10 12:04] LABS: Glucose,Whole Blood 51 mg/dL (75-99)
[2017-12-10 12:28] LABS: Glucose,Whole Blood 99 mg/dL (75-99)
[2017-12-10] MEDS: MULTIVITAMINS, THERA 1 EACH TAB PO SCH (12:41)
[2017-12-10] MEDS: ACETAMINOPHEN TAB 325 MG TAB PO PRN (12:47)
[2017-12-10] MEDS ORDERED: SODIUM CHLORIDE 0.9% 1,000 ML IV SCH (16:15)
[2017-12-10 16:49] LABS: Glucose,Whole Blood 443 mg/dL (75-99)
[2017-12-10] MEDS ORDERED: INSULIN ASPART 100 UNIT/ML 1 ML 10 ML VIAL SQ ONE (17:15)
[2017-12-10 18:10] LABS: Glucose,Whole Blood 368 mg/dL (75-99)
[2017-12-10] MEDS: ALPRAZolam 0.25 MG TAB PO PRN (18:57)
[2017-12-10] MEDS ORDERED: HALOPERIDOL LACTATE 5 MG/ML 1 ML VIAL IM ONE (19:17)
[2017-12-10] MEDS: ATORVASTATIN 10 MG TAB PO SCH (19:53)
[2017-12-10 21:11] LABS: Glucose,Whole Blood 180 mg/dL (75-99)
--- NOTE | 2017-12-10 22:10 | PN ---
PROGRESS NOTE DATE OF SERVICE: December 10, 2017. PRESENT COMPLAINT: Right toe wounds. INTERVAL HISTORY: This patient presented with gangrene and wounds on the right foot. I spoke to Dr. Ugarte this morning. He did an angiogram and expecting to do atherectomy. The patient also getting antibiotics late in the evening. Patient got delirious and somewhat agitated, although sugars were running high. I did order some Haldol and extra insulin. REVIEW OF SYSTEMS: Done for constitutional, cardiovascular, GI, pulmonary, psych: relevant findings as above. CURRENT MEDICATIONS: Reviewed that include vancomycin, IV Zosyn. PHYSICAL EXAMINATION: Temperature 98.2, pulse 94, respiratory 18, blood pressure 130/71, pulse ox 96% on room air. GENERAL APPEARANCE: Lying in bed, awake. Eyes pupils are equal. Conjunctivae normal. HEENT external appearance of nose and ears normal. Oral cavity normal. Neck JVD not raised. Mass not palpable. Respiratory: Lungs decreased breath sounds. Cardiovascular 1st and 2nd sounds normal. No edema. ABDOMEN: Soft, nontender. Liver and spleen not palpable. Psychiatry: The patient knows that he is in [place], not sure why he is here. He thinks he is here because his is him. Otherwise, patient is moving all 4 limbs. Extremities: Left below-knee amputation. Right foot changes unchanged. INVESTIGATIONS: Accu-Cheks 368, 180. ASSESSMENT: 1. Acute gangrene of the right foot little toe and cellulitis with kissing ulcer between the right 2nd and 3rd toe. 2. Severe peripheral artery disease, detailed in angiogram results. 3. Severe onychomycosis of the toenails. 4. Diabetes mellitus type 2, chronically on insulin, uncontrolled with hyperglycemia. 5. Hyperlipidemia. 6. Essential hypertension. 7. Primary osteoarthritis. 8. Hypothyroid. 9. Left below-knee amputation. 10.Chronic hard of hearing. 11.Acute delirium probably from infection. PLAN: Patient is given an extra dose of insulin. Also given Haldol. I have ordered a sitter and will turn off any stimuli including television audio. Follow. MMODL / IJN: [id number] /
[2017-12-10] MEDS: INSULIN DETEMIR 100 UNIT/ML 10 ML VIAL SQ SCH (23:01)
[2017-12-11] MEDS: VANCOMYCIN 1,250 MG in SODIUM CHLORIDE 0.9% 250 ML IVPB SCH ×2 (03:07→16:21)
[2017-12-11] MEDS: LEVOTHYROXINE 137 MCG TAB PO SCH (06:17)
[2017-12-11 06:24] LABS: Glucose,Whole Blood 78 mg/dL (75-99)
[2017-12-11] MEDS: INSULIN ASPART 100 UNIT/ML 1 ML 10 ML VIAL SQ SCH ×7 (06:24→21:57)
[2017-12-11] MEDS: amLODIPine 5 MG TAB PO SCH (08:26)
[2017-12-11] MEDS: FAMOTIDINE 20 MG TAB PO SCH ×2 (08:26→19:37)
[2017-12-11] MEDS: LISINOPRIL 10 MG TAB PO SCH (08:26)
[2017-12-11] MEDS: MELOXICAM 7.5 MG TAB PO SCH (08:27)
[2017-12-11] MEDS: MULTIVITAMINS, THERA 1 EACH TAB PO SCH (08:27)
[2017-12-11] MEDS: METOPROLOL TARTRATE 25 MG TAB PO SCH ×2 (08:27→19:36)
[2017-12-11] MEDS: PIPERACILLIN-TAZOBACTAM 3.375 GM in DEXTROSE/WATER 1 50ML.BAG IVPB SCH ×2 (09:13→14:56)
--- NOTE | 2017-12-11 09:59 | IR ---
Fluoroscopy HISTORY: Nonhealing foot wound 2.2 minutes fluoroscopy time supplied to the referring clinician. 263 intraoperative C-arm images do cument the procedure. See dictated report from vascular surgery.
[2017-12-11 11:54] LABS: Glucose,Whole Blood 137 mg/dL (75-99)
[2017-12-11] MEDS ORDERED: VANCOMYCIN TROUGH DUE 1 EACH MISC MISCELLANE ONE (15:00)
[2017-12-11 16:53] LABS: Glucose,Whole Blood 336 mg/dL (75-99)
[2017-12-11] MEDS: QUEtiapine 25 MG TAB PO SCH (19:36)
[2017-12-11] MEDS: ATORVASTATIN 10 MG TAB PO SCH (19:37)
[2017-12-11] MEDS: ALPRAZolam 0.25 MG TAB PO PRN (19:37)
[2017-12-11 20:39] LABS: Glucose,Whole Blood 191 mg/dL (75-99)
[2017-12-11] MEDS: INSULIN DETEMIR 100 UNIT/ML 10 ML VIAL SQ SCH (21:58)
--- NOTE | 2017-12-11 22:02 | PN ---
PROGRESS NOTE DATE OF SERVICE: 12/11/2017 PRESENTING COMPLAINT: Right toe wound. INTERVAL HISTORY: This is a patient who presented with gangrene of the right little toe and wounds on the right foot. Patient was seen this morning. Less delirious than the previous night. Family at the bedside. Patient due to go for atherectomy later in the day. REVIEW OF SYSTEMS: Done for constitutional, cardiovascular, GI, pulmonary; relevant findings as above. CURRENT MEDICATIONS: Reviewed. They include IV Zosyn. PHYSICAL EXAMINATION: Temperature 96.8, pulse 75, respiration 18, blood pressure 175/85, pulse ox 99% on room air. GENERAL APPEARANCE: Lying in bed, comfortable. EYES: Pupils equal. Conjunctivae normal. HEENT: Conjunctivae normal. NECK: JVD not raised. Mass not palpable. RESPIRATORY: Effort normal. LUNGS: Decreased breath sounds. CARDIOVASCULAR: First and second sounds normal. No edema. ABDOMEN: Soft, nontender. Liver and spleen not palpable. PSYCHIATRY: Patient knows that he is in the hospital, recognizes family. He is not exactly sure why he is here. INVESTIGATIONS: Accu-Cheks noted. ASSESSMENT: 1. Acute gangrene of the right foot little toe and cellulitis with kissing ulcer between the right second and third toe. 2. Severe peripheral arterial disease. Details in angiogram results. 3. Severe onychomycosis of the toenails. 4. Diabetes mellitus, type 2, chronically on insulin, uncontrolled, with hyp glycemia. 5. Hyperlipidemia. 6. Essential hypertension. 7. Primary osteoarthritis. 8. Hypothyroid. 9. Left below-knee amputation. 10.Chronic hard of hearing. 11.Acute delirium from infection. PLAN: Care was discussed with the patient and family at the bedside. Patient is awaiting atherectomy this afternoon. Will start the patient on Seroquel at night. MMODL / IJN: [id number] /
[2017-12-12] MEDS: PIPERACILLIN-TAZOBACTAM 3.375 GM in DEXTROSE/WATER 1 50ML.BAG IVPB SCH ×4 (01:16→23:31)
[2017-12-12] MEDS: VANCOMYCIN 1,250 MG in SODIUM CHLORIDE 0.9% 250 ML IVPB SCH ×2 (06:05→15:48)
[2017-12-12] MEDS: SODIUM CHLORIDE 0.9% 1,000 ML IV SCH ×2 (06:05→20:29)
[2017-12-12] MEDS: LEVOTHYROXINE 137 MCG TAB PO SCH (06:43)
[2017-12-12 06:52] LABS: Glucose,Whole Blood 76 mg/dL (75-99)
[2017-12-12] MEDS: INSULIN ASPART 100 UNIT/ML 1 ML 10 ML VIAL SQ SCH ×7 (07:59→21:52)
[2017-12-12 09:09] LABS: Anion Gap 13 mmol/L; Blood Urea Nitrogen 9 mg/dL (9-20); Calcium 9.5 mg/dL (8.4-10.2); Carbon Dioxide 27 mmol/L (22-30); Chloride 104 mmol/L (98-107); Glucose 106 mg/dL (74-99); Potassium 4.2 mmol/L (3.5-5.1); Sodium 144 mmol/L (137-145)
[2017-12-12] MEDS: METOPROLOL TARTRATE 25 MG TAB PO SCH ×2 (09:39→20:29)
[2017-12-12] MEDS: FAMOTIDINE 20 MG TAB PO SCH ×2 (09:40→20:29)
[2017-12-12] MEDS: MELOXICAM 7.5 MG TAB PO SCH (09:40)
[2017-12-12] MEDS: amLODIPine 5 MG TAB PO SCH (09:41)
[2017-12-12] MEDS: LISINOPRIL 10 MG TAB PO SCH (09:41)
[2017-12-12 11:33] LABS: Glucose,Whole Blood 322 mg/dL (75-99)
[2017-12-12] MEDS: MULTIVITAMINS, THERA 1 EACH TAB PO SCH (12:08)
[2017-12-12] MEDS: ALPRAZolam 0.25 MG TAB PO PRN (15:55)
[2017-12-12 17:18] LABS: Glucose,Whole Blood 329 mg/dL (75-99)
[2017-12-12] MEDS: metFORMIN 500 MG TAB PO SCH (17:45)
[2017-12-12] MEDS: ATORVASTATIN 10 MG TAB PO SCH (20:29)
[2017-12-12] MEDS: QUEtiapine 25 MG TAB PO SCH (20:29)
[2017-12-12 21:08] LABS: Glucose,Whole Blood 190 mg/dL (75-99)
--- NOTE | 2017-12-12 21:08 | PN ---
PROGRESS NOTE DATE OF SERVICE: December 12, 2017. PRESENTING COMPLAINT: Right foot wound. INTERVAL HISTORY: This is a patient presented with gangrene right little toe and wounds right foot found to have significant disease on the angiogram. Patient had been getting delirious. Last night I started the patient on Seroquel. He did sleep rather well and is doing much better this morning. at the bedside. REVIEW OF SYSTEMS: Done for constitutional, cardiovascular, GI, pulmonary and relevant findings as above. CURRENT MEDICATIONS: Reviewed that include IV Zosyn and vancomycin. PHYSICAL EXAMINATION: Temperature 98.6, pulse 83, respirations 18, blood pressure 138/76, pulse ox 99% on room air. General appearance: Sitting up in bed, comfortable, awake, cheerful. Eyes pupils are equal. Conjunctivae normal. HEENT: External appearance of nose and ears normal. Oral cavity normal. Neck JVD not raised. Mass not palpable. Respiratory effort normal. Lungs decreased breath sounds. Cardiovascular: First and second sounds normal. No edema. ABDOMEN: Soft, nontender. Liver and spleen not palpable. Psychiatry AO x3. Mood and affect normal. Extremities: Right foot in a dressing. Left below-knee amputation. INVESTIGATIONS: Potassium 4.2, BUN and creatinine is normal. Accu-Cheks noted. ASSESSMENT: 1. Acute gangrene of the right foot little toe and cellulitis with kissing ulcer between the right 2nd and 3rd toe. 2. Severe peripheral arterial disease as noted in the angiogram. 3. Severe and onychomycosis of the toenails. 4. Diabetes mellitus type 2, chronically on insulin, uncontrolled with hyperglycemia. 5. Hyperlipidemia. 6. Essential hypertension. 7. Primary osteoarthritis. 8. Hypothyroid. 9. Left below-knee amputation. 10.Chronic hard of hearing. 11.Acute delirium from infection much improved. PLAN: Continue medication and treatment plan. The patient doing well on the Seroquel. The patient also will discuss with Dr. Brian and with Dr. Ugarte in terms of further plan of action. This was conveyed to the . Follow from there. MMODL / IJN: [id number] /
[2017-12-12] MEDS: INSULIN DETEMIR 100 UNIT/ML 10 ML VIAL SQ SCH (21:52)
--- NOTE | 2017-12-12 23:59 | P.PN ---
Subjective Progress Note Date: 12/12/17 62 year old male with a history of peripherial vascular disease and left below- the-knee amputation in 2007 due to his severe peripheral vascular disease. It is related at that time with the help of the patient's about his history, that he had severe peripheral vascular disease that was caused from his tobacco use. After his amputation he stopped his heavy tobacco use and also stopped his alcohol abuse. Since that time he's had an improvement of his status. However recently the went to do some foot care and noticed that there was some gangrenous changes to the right foot fifth toe into the interspace between the third and fourth toe. With that he was brought in the hospital for further intervention. He has been seen by vascular surgery and angiography has been scheduled to evaluate the blood flow to the right leg since the surgical plan can be devised. Primary goal will be to salvage the right lower extremity, double amputees often have great difficulty with ambulation and often in a relatively short period of time. Antibiotic therapy to be advised. 12/12/2017 patient is a angiography performed and appears to need peripheral arthrectomy procedures which are yet to be scheduled. The patient has significant agitation. With the nurse present we try to calm the patient and have him understand the significant importance of his current care. Current goal is salvage of the right lower extremity see does not have another amputation. Objective - Vital Signs Vital signs: Vital Signs Temp 97.4 F L 12/12/17 23:14 Pulse 71 12/12/17 23:14 Resp 20 12/12/17 23:14 BP 96/60 12/12/17 23:14 Pulse Ox 97 12/12/17 23:14 Intake & Output 12/12/17 12/12/17 12/13/17 06:59 18:59 06:59 Intake Total 1800 Balance 1800 Weight 66.5 kg Intake: Intake, IV Titration 300 Amount Piperacillin-Tazobactam 3 50 .375 gm In Dextrose/Water 1 50ml.bag @ 12.5 mls/hr IVPB Q8H JOANN Rx#: [id number] Vancomycin 1,250 mg In 250 Sodium Chloride 0.9% 250 ml @ 125 mls/hr IVPB Q12H JOANN Rx#:[id number] Oral 1500 Other: Voiding Method Urinal Urinal # Voids 2 5 # Bowel Movements 1 - Exam 62-year-old male who looks older than his stated age HEENT: Anicteric conjunctiva are pink and moist nasal mucosa grossly intact without significant lesions, there is no thrush. Poor dentition Neck: The neck is supple without significant lymphadenopathy or thyromegaly. Lungs: Symmetrical air entry with evidence of some expiratory wheezes but no vaishnavi bronchial sounds no dullness or egophony Heart: Regular rate and rhythm with an audible S1-S2, no S3 loud S4 There is no significant murmur click or rub, PMI was nondisplaced. Abdomen: Mildly obese Positive bowel sounds soft and nontender without palpable masses or organomegaly. There was no guarding or rebound. Extremities: The upper extremities have excellent pulses they are symmetric, no significant petechiae or telangiectasia. No splinter hemorrhages were noted. Left lower extremity residual limb is without ulceration. Right lower extremity has evidence of the gangrenous changes to the fifth toe as well as interspaced between toes 3 and 4 with some mild erythema without purulent drainage Neuro: Patient is awake and alert however has been with very poor behavior, nurses are utilizing a sitter to keep him in bed and keep him safe - Labs CBC & Chem 7: 12/09/17 00:30 12/12/17 08:25 Labs: Abnormal Lab Results - Last 24 Hours (Table) 12/12/17 12/12/17 12/12/17 Range/Units 08:25 11:30 17:11 Glucose 106 H (74-99) mg/dL POC Glucose (mg/dL) 322 H 329 H (75-99) mg/dL 12/12/17 Range/Units 20:54 Glucose (74-99) mg/dL POC Glucose (mg/dL) 190 H (75-99) mg/dL Microbiology - Last 24 Hours (Table) 12/09/17 00:30 Blood Culture - Preliminary Blood No Growth after 72 hours Laboratory Results WBC 11.7 k/uL (3.8-10.6) H 12/09/17 00:30 RBC 3.85 m/uL (4.30-5.90) L 12/09/17 00:30 Hgb 11.1 gm/dL (13.0-17.5) L 12/09/17 00:30 Hct 33.4 % (39.0-53.0) L 12/09/17 00:30 MCV 86.6 fL (80.0-100.0) 12/09/17 00:30 MCH 28.8 pg (25.0-35.0) 12/09/17 00:30 MCHC 33.3 g/dL (31.0-37.0) 12/09/17 00:30 RDW 14.0 % (11.5-15.5) 12/09/17 00:30 Plt Count 498 k/uL (150-450) H 12/09/17 00:30 Neutrophils % 69 % 12/09/17 00:30 Lymphocytes % 19 % 12/09/17 00:30 Monocytes % 5 % 12/09/17 00:30 Eosinophils % 6 % 12/09/17 00:30 Basophils % 0 % 12/09/17 00:30 Neutrophils # 8.0 k/uL (1.3-7.7) H 12/09/17 00:30 Lymphocytes # 2.2 k/uL (1.0-4.8) 12/09/17 00:30 Monocytes # 0.5 k/uL (0-1.0) 12/09/17 00:30 Eosinophils # 0.7 k/uL (0-0.7) 12/09/17 00:30 Basophils # 0.0 k/uL (0-0.2) 12/09/17 00:30 ESR 51 mm/hr (0-15) H 12/09/17 00:30 Sodium 144 mmol/L (137-145) 12/12/17 08:25 Potassium 4.2 mmol/L (3.5-5.1) 12/12/17 08:25 Chloride 104 mmol/L (98-107) 12/12/17 08:25 Carbon Dioxide 27 mmol/L (22-30) 12/12/17 08:25 Anion Gap 13 mmol/L 12/12/17 08:25 BUN 9 mg/dL (9-20) 12/12/17 08:25 Creatinine 0.89 mg/dL (0.66-1.25) 12/12/17 08:25 Est GFR (CKD-EPI)AfAm >90 (>60 ml/min/1.73 sqM) 12/12/17 08:25 Est GFR (CKD-EPI)NonAf >90 (>60 ml/min/1.73 sqM) 12/12/17 08:25 Glucose 106 mg/dL (74-99) H 12/12/17 08:25 POC Glucose (mg/dL) 190 mg/dL (75-99) H 12/12/17 20:54 POC Glu Entry Level Automotive Technician ID Lashay Cheng 12/12/17 20:54 Calcium 9.5 mg/dL (8.4-10.2) 12/12/17 08:25 Total Bilirubin 0.2 mg/dL (0.2-1.3) 12/09/17 00:30 AST 22 U/L (17-59) 12/09/17 00:30 ALT 22 U/L (21-72) 12/09/17 00:30 Alkaline Phosphatase 78 U/L (38-126) 12/09/17 00:30 C-Reactive Protein 10.0 mg/L (<10.0) H 12/09/17 00:30 Total Protein 6.4 g/dL (6.3-8.2) 12/09/17 00:30 Albumin 3.6 g/dL (3.5-5.0) 12/09/17 00:30 Vancomycin Trough 15.4 ug/mL 12/11/17 14:55 Microbiology 12/09/17 00:30 Blood Blood Culture - Preliminary No Growth after 72 hours 12/09/17 00:30 Foot - Right Gram Stain - Final 12/09/17 00:30 Foot - Right Wound Culture - Final Beta Hemolytic Streptococcus F Assessment and Plan (1) Gangrene of toe of right foot Narrative/Plan: 62-year-old male has a history of prior heavy tobacco use and alcohol use did have a left [id number] amputation done in 2007 which point in time he discontinued alcohol and tobacco use. His and modestly well over time but now developed evidence of gangrenous changes of the fifth toe and interspace between to screen for on the right foot. He has been seen by vascular surgery. The case is discussed with them. The plan is for angiography to evaluate his vessels to ensure that there is adequate blood flow before further surgical plans to the foot are provided. Overall goal is foot salvage given the left efclx-whb-[id number] amputation has occurred. Amputation of more than just told the right foot could result in lack of ability to ambulate which would then have a direct impact on his longevity. Antibiotic therapy as well as Zosyn and vancomycin until we have further data. The course of antibiotic therapy after discharge will be determined by his response to therapy and the extent of the involvement of the infection after surgical interventions. Improve glucose control, adequate protein intake and a multivitamin along be helpful. 12/12/2017 patient has severe peripheral vascular disease. Plans for peripheral arthrectomy arm process and hopefully limb tong can be obtained. Continue current antibiotic therapy was final cultures are in process. We did discuss with the patient the importance of his cooperation and that he needs to stay in hospital, receive antibiotic therapy and hopefully surgical plan so that the right lower extremity may be salvage. Current Visit: Yes Status: Acute Code(s): I96 - GANGRENE, NOT ELSEWHERE CLASSIFIED SNOMED Code(s): 51196100944683601 (2) Diabetic ulcer of right foot Current Visit: Yes Status: Acute Code(s): E11.621 - TYPE 2 DIABETES MELLITUS WITH FOOT ULCER; L97.519 - NON-PRS CHRONIC ULCER OTH PRT RIGHT FOOT W UNSP SEVERITY SNOMED Code(s): 859135474 (3) Peripheral vascular disease in diabetes mellitus Current Visit: Yes Status: Acute Code(s): E11.51 - TYPE 2 DIABETES W DIABETIC PERIPHERAL ANGIOPATH W/O GANGRENE SNOMED Code(s): 26066662
[2017-12-13] MEDS: VANCOMYCIN 1,250 MG in SODIUM CHLORIDE 0.9% 250 ML IVPB SCH ×2 (03:46→15:01)
[2017-12-13] MEDS: LEVOTHYROXINE 137 MCG TAB PO SCH (06:19)
[2017-12-13] MEDS: INSULIN ASPART 100 UNIT/ML 1 ML 10 ML VIAL SQ SCH ×7 (07:37→21:32)
[2017-12-13 07:41] LABS: Glucose,Whole Blood 97 mg/dL (75-99)
[2017-12-13] MEDS: PIPERACILLIN-TAZOBACTAM 3.375 GM in DEXTROSE/WATER 1 50ML.BAG IVPB SCH ×2 (07:53→15:00)
[2017-12-13] MEDS: metFORMIN 500 MG TAB PO SCH ×2 (07:53→17:42)
[2017-12-13] MEDS: FAMOTIDINE 20 MG TAB PO SCH ×2 (07:54→20:30)
[2017-12-13] MEDS: MELOXICAM 7.5 MG TAB PO SCH (07:54)
[2017-12-13] MEDS: amLODIPine 5 MG TAB PO SCH ×2 (07:54→08:12)
[2017-12-13] MEDS: LISINOPRIL 10 MG TAB PO SCH ×2 (07:54→08:12)
[2017-12-13] MEDS: METOPROLOL TARTRATE 25 MG TAB PO SCH ×2 (07:55→20:30)
[2017-12-13 10:15] LABS: Calcium 9.1 mg/dL (8.4-10.2); Potassium 4.3 mmol/L (3.5-5.1)
--- NOTE | 2017-12-13 10:55 | P.VSCSTY ---
Greater Saphenous Vein Mapping This is bilateral lower extremity greater saphenous vein mapping. Date of service 12/11/2017 Vein quality and ultrasound appearance no intraluminal thrombus or wall changes are seen.. Vein size groin right 6.1 x 5.1 groin left [ ] High thigh right 4.9 x 4.4 high thigh left [ ] Mid thigh right 3.7 x 3.4 mid thigh left [ ] Above-knee right 3.6 x 3.0 above-knee left [ ] Below knee right 3.3 x 2.5 below-knee left [] Mid calf right 4.2 x 3.1 mid calf left [] Ankle right 5.2 x 3.6 ankle left [] Impression usable right leg vein..
[2017-12-13 12:22] LABS: Glucose,Whole Blood 168 mg/dL (75-99)
[2017-12-13] MEDS: MULTIVITAMINS, THERA 1 EACH TAB PO SCH (12:38)
[2017-12-13] MEDS: ALPRAZolam 0.25 MG TAB PO PRN ×2 (12:38→17:51)
[2017-12-13 17:35] LABS: Glucose,Whole Blood 66 mg/dL (75-99)
[2017-12-13 17:35] LABS: Glucose,Whole Blood 50 mg/dL (75-99)
[2017-12-13 17:50] LABS: Glucose,Whole Blood 103 mg/dL (75-99)
--- NOTE | 2017-12-13 18:44 | PN ---
PROGRESS NOTE DATE OF SERVICE: December 13, 2017. PRESENTING COMPLAINT: Right foot wound. INTERVAL HISTORY: This patient presented with gangrene of the right foot little toe and wound in the fingers for significant peripheral artery disease. Pending arthrectomy this Monday. The patient delirium is greatly improved with Seroquel. at the bedside. Rather happy expressing their happiness how things are going. REVIEW OF SYSTEMS: Done for constitutional, cardiovascular, GI, pulmonary, relevant findings as above. CURRENT MEDICATIONS: Include IV Zosyn, vancomycin. PHYSICAL EXAMINATION: Temperature 97, pulse 82, respirations 16, blood pressure 129/82, pulse ox 99% on room air. General appearance: Sitting up in bed comfortable. Eyes pupils equal. Conjunctivae normal. HEENT external appearance of nose and ears normal. Oral cavity normal. Neck: JVD not raised. Mass not palpable. Respiratory effort lungs decreased breath sounds. Cardiovascular 1st and 2nd sounds normal. No edema. ABDOMEN: Soft, nontender. Liver and spleen not palpable. Psychiatry: Alert and oriented times three. Mood and affect normal. Extremities: Left below-knee amputation. Right foot wounds as before. INVESTIGATIONS: Potassium 4.3, BUN and creatinine is normal. Accu-Cheks noted. ASSESSMENT: 1. Acute gangrene of the right foot little toe and cellulitis with kissing ulcer between the right 2nd and 3rd toe secondary to severe peripheral artery disease. 2. Severe peripheral artery disease as noted in the angiogram. 3. Severe onychomycosis of the toenails. 4. Diabetes mellitus type 2, chronically on insulin, uncontrolled with hypoglycemia, now doing better. 5. Hyperlipidemia. 6. Essential hypertension. 7. Primary osteoarthritis. 8. Hypothyroid. 9. Left below-knee amputation. 10.Chronic hard of hearing. 11.Acute delirium from infection, improved. PLAN: Continue current medication and treatment plan including antibiotics, await atherectomy this Monday. Care was discussed with the patient and . MMODL / IJN: [id number] /
[2017-12-13] MEDS: QUEtiapine 25 MG TAB PO SCH (20:30)
[2017-12-13] MEDS: ATORVASTATIN 10 MG TAB PO SCH (20:30)
[2017-12-13] MEDS: SODIUM CHLORIDE 0.9% 1,000 ML IV SCH (20:32)
[2017-12-13 21:01] LABS: Glucose,Whole Blood 265 mg/dL (75-99)
[2017-12-13] MEDS: INSULIN DETEMIR 100 UNIT/ML 10 ML VIAL SQ SCH (21:31)
[2017-12-14] MEDS: PIPERACILLIN-TAZOBACTAM 3.375 GM in DEXTROSE/WATER 1 50ML.BAG IVPB SCH ×4 (00:06→23:43)
[2017-12-14] MEDS: VANCOMYCIN 1,250 MG in SODIUM CHLORIDE 0.9% 250 ML IVPB SCH ×2 (03:59→17:25)
[2017-12-14] MEDS: LEVOTHYROXINE 137 MCG TAB PO SCH ×2 (06:25→06:28)
[2017-12-14 07:34] LABS: Glucose,Whole Blood 79 mg/dL (75-99)
[2017-12-14] MEDS: INSULIN ASPART 100 UNIT/ML 1 ML 10 ML VIAL SQ SCH ×7 (07:48→21:24)
[2017-12-14 08:16] LABS: Calcium 9.7 mg/dL (8.4-10.2); Potassium 4.1 mmol/L (3.5-5.1)
[2017-12-14] MEDS: FAMOTIDINE 20 MG TAB PO SCH ×2 (08:27→20:29)
[2017-12-14] MEDS: metFORMIN 500 MG TAB PO SCH ×2 (08:27→17:29)
[2017-12-14] MEDS: METOPROLOL TARTRATE 25 MG TAB PO SCH ×2 (08:28→20:29)
[2017-12-14] MEDS: MELOXICAM 7.5 MG TAB PO SCH (08:28)
[2017-12-14] MEDS: amLODIPine 5 MG TAB PO SCH (08:28)
[2017-12-14] MEDS: ALPRAZolam 0.25 MG TAB PO PRN ×3 (11:01→23:45)
[2017-12-14] MEDS: MULTIVITAMINS, THERA 1 EACH TAB PO SCH (11:01)
[2017-12-14 12:15] LABS: Glucose,Whole Blood 336 mg/dL (75-99)
[2017-12-14 14:22] VITALS: BMI 22.3
[2017-12-14 17:32] LABS: Glucose,Whole Blood 261 mg/dL (75-99)
--- NOTE | 2017-12-14 20:28 | PN ---
PROGRESS NOTE DATE OF SERVICE: 12/14/2017 PRESENTING COMPLAINT: Right foot wound. INTERVAL HISTORY: This is a patient with gangrene in the right foot toe and wound with significant peripheral artery disease. at the bedside. Getting IV antibiotics. Tolerating his diet. Patient is doing well with Seroquel. Awaiting atherectomy tomorrow. REVIEW OF SYSTEMS: Done for constitutional, cardiovascular, GI, pulmonary; relevant findings as above. CURRENT MEDICATIONS: Reviewed. They include IV Zosyn, vancomycin and Seroquel. PHYSICAL EXAMINATION: Temperature 97.5, pulse 92, respiration 16, blood pressure 165/86, pulse ox 97% on room air. GENERAL APPEARANCE: Sitting up in bed, comfortable. EYES: Pupils equal. Conjunctivae normal. HEENT: External appearance of nose and ears normal. Oral cavity normal. NECK: JVD not raised. Mass not palpable. RESPIRATORY: Effort normal. LUNGS: Decreased breath sounds. CARDIOVASCULAR: First and second sounds normal. No edema. ABDOMEN: Soft, nontender. Liver and spleen not palpable. PSYCHIATRY: Alert and oriented x3. Mood and affect normal. EXTREMITIES: Left below-knee amputation, right foot wound, including right small toe gangrene. INVESTIGATIONS: Potassium 4.1. BUN and creatinine are normal. Accu-Cheks noted. ASSESSMENT: 1. Acute gangrene of the right foot little toe and cellulitis with kissing ulcer between the second and third toes secondary to severe peripheral artery disease. 2. Severe peripheral artery disease as noted on the angiogram, pending atherectomy tomorrow. 3. Severe onychomycosis of the toenails. 4. Diabetes mellitus, type 2, chronically on insulin, uncontrolled with hyperglycemia. 5. Hyperlipidemia. 6. Essential hypertension. 7. Primary osteoarthritis. 8. Hypothyroid. 9. Left below-knee amputation. 10.Chronic hard of hearing. 11.Acute delirium from infection, improved. PLAN: Patient may have some mild underlying neurocognitive disorder, but this needs to be further evaluated when acute infection phase is better. Care was discussed with the patient's at the bedside. Await surgical intervention tomorrow. MMODL / IJN: [id number] /
[2017-12-14] MEDS: ATORVASTATIN 10 MG TAB PO SCH (20:29)
[2017-12-14] MEDS: QUEtiapine 25 MG TAB PO SCH (20:29)
[2017-12-14 20:42] LABS: Glucose,Whole Blood 216 mg/dL (75-99)
[2017-12-14] MEDS: INSULIN DETEMIR 100 UNIT/ML 10 ML VIAL SQ SCH (21:23)
[2017-12-14] MEDS: SODIUM CHLORIDE 0.9% 1,000 ML IV SCH (23:43)
--- NOTE | 2017-12-15 00:28 | P.PN ---
Subjective Progress Note Date: 12/14/17 62 year old male with a history of peripherial vascular disease and left below- the-knee amputation in 2007 due to his severe peripheral vascular disease. It is related at that time with the help of the patient's about his history, that he had severe peripheral vascular disease that was caused from his tobacco use. After his amputation he stopped his heavy tobacco use and also stopped his alcohol abuse. Since that time he's had an improvement of his status. However recently the went to do some foot care and noticed that there was some gangrenous changes to the right foot fifth toe into the interspace between the third and fourth toe. With that he was brought in the hospital for further intervention. He has been seen by vascular surgery and angiography has been scheduled to evaluate the blood flow to the right leg since the surgical plan can be devised. Primary goal will be to salvage the right lower extremity, double amputees often have great difficulty with ambulation and often in a relatively short period of time. Antibiotic therapy to be advised. 12/12/2017 patient is a angiography performed and appears to need peripheral arthrectomy procedures which are yet to be scheduled. The patient has significant agitation. With the nurse present we try to calm the patient and have him understand the significant importance of his current care. Current goal is salvage of the right lower extremity see does not have another amputation. 12/14/2017 vein mapping today with bypass planned soon for his critical ischemia lower extremity Objective - Vital Signs Vital signs: Vital Signs Temp 97.2 F L 12/14/17 15:19 Pulse 90 12/14/17 15:19 Resp 20 12/14/17 15:19 BP 141/80 12/14/17 15:19 Pulse Ox 98 12/14/17 15:19 Intake & Output 12/14/17 12/14/17 12/15/17 06:59 18:59 06:59 Intake Total 100 200 Balance 100 200 Weight 66.5 kg Intake: Oral 100 200 Other: Voiding Method Toilet Bedside Commode Urinal Urinal # Voids 1 # Bowel Movements 0 - Exam 62-year-old male who looks older than his stated age HEENT: Anicteric conjunctiva are pink and moist nasal mucosa grossly intact without significant lesions, there is no thrush. Poor dentition Neck: The neck is supple without significant lymphadenopathy or thyromegaly. Lungs: Symmetrical air entry with evidence of some expiratory wheezes but no vaishnavi bronchial sounds no dullness or egophony Heart: Regular rate and rhythm with an audible S1-S2, no S3 loud S4 There is no significant murmur click or rub, PMI was nondisplaced. Abdomen: Mildly obese Positive bowel sounds soft and nontender without palpable masses or organomegaly. There was no guarding or rebound. Extremities: The upper extremities have excellent pulses they are symmetric, no significant petechiae or telangiectasia. No splinter hemorrhages were noted. Left lower extremity residual limb is without ulceration. Right lower extremity has evidence of the gangrenous changes to the fifth toe as well as interspaced between toes 3 and 4 with some mild erythema without purulent drainage Neuro: Patient is awake and alert however has been with very poor behavior, nurses are utilizing a sitter to keep him in bed and keep him safe - Labs CBC & Chem 7: 12/09/17 00:30 12/14/17 07:29 Labs: Abnormal Lab Results - Last 24 Hours (Table) 12/14/17 12/14/17 12/14/17 Range/Units 12:06 17:22 20:40 POC Glucose (mg/dL) 336 H 261 H 216 H (75-99) mg/dL Microbiology - Last 24 Hours (Table) 12/09/17 00:30 Blood Culture - Preliminary Blood No Growth after 120 hours Laboratory Results WBC 11.7 k/uL (3.8-10.6) H 12/09/17 00:30 RBC 3.85 m/uL (4.30-5.90) L 12/09/17 00:30 Hgb 11.1 gm/dL (13.0-17.5) L 12/09/17 00:30 Hct 33.4 % (39.0-53.0) L 12/09/17 00:30 MCV 86.6 fL (80.0-100.0) 12/09/17 00:30 MCH 28.8 pg (25.0-35.0) 12/09/17 00:30 MCHC 33.3 g/dL (31.0-37.0) 12/09/17 00:30 RDW 14.0 % (11.5-15.5) 12/09/17 00:30 Plt Count 498 k/uL (150-450) H 12/09/17 00:30 Neutrophils % 69 % 12/09/17 00:30 Lymphocytes % 19 % 12/09/17 00:30 Monocytes % 5 % 12/09/17 00:30 Eosinophils % 6 % 12/09/17 00:30 Basophils % 0 % 12/09/17 00:30 Neutrophils # 8.0 k/uL (1.3-7.7) H 12/09/17 00:30 Lymphocytes # 2.2 k/uL (1.0-4.8) 12/09/17 00:30 Monocytes # 0.5 k/uL (0-1.0) 12/09/17 00:30 Eosinophils # 0.7 k/uL (0-0.7) 12/09/17 00:30 Basophils # 0.0 k/uL (0-0.2) 12/09/17 00:30 ESR 51 mm/hr (0-15) H 12/09/17 00:30 Sodium 144 mmol/L (137-145) 12/14/17 07:29 Potassium 4.1 mmol/L (3.5-5.1) 12/14/17 07:29 Chloride 105 mmol/L (98-107) 12/14/17 07:29 Carbon Dioxide 26 mmol/L (22-30) 12/14/17 07:29 Anion Gap 13 mmol/L 12/14/17 07:29 BUN 15 mg/dL (9-20) 12/14/17 07:29 Creatinine 1.12 mg/dL (0.66-1.25) 12/14/17 07:29 Est GFR (CKD-EPI)AfAm 81 (>60 ml/min/1.73 sqM) 12/14/17 07:29 Est GFR (CKD-EPI)NonAf 70 (>60 ml/min/1.73 sqM) 12/14/17 07:29 Glucose 94 mg/dL (74-99) 12/14/17 07:29 POC Glucose (mg/dL) 216 mg/dL (75-99) H 12/14/17 20:40 POC Glu Ingot Stripper ID Regine Smiley 12/14/17 20:40 Calcium 9.7 mg/dL (8.4-10.2) 12/14/17 07:29 Total Bilirubin 0.2 mg/dL (0.2-1.3) 12/09/17 00:30 AST 22 U/L (17-59) 12/09/17 00:30 ALT 22 U/L (21-72) 12/09/17 00:30 Alkaline Phosphatase 78 U/L (38-126) 12/09/17 00:30 C-Reactive Protein 10.0 mg/L (<10.0) H 12/09/17 00:30 Total Protein 6.4 g/dL (6.3-8.2) 12/09/17 00:30 Albumin 3.6 g/dL (3.5-5.0) 12/09/17 00:30 Vancomycin Trough 15.4 ug/mL 12/11/17 14:55 Microbiology 12/09/17 00:30 Blood Blood Culture - Preliminary No Growth after 120 hours 12/09/17 00:30 Foot - Right Gram Stain - Final 12/09/17 00:30 Foot - Right Wound Culture - Final Beta Hemolytic Streptococcus F Assessment and Plan (1) Gangrene of toe of right foot Narrative/Plan: 62-year-old male has a history of prior heavy tobacco use and alcohol use did have a left orpdh-dsx-hsch amputation done in 2007 which point in time he discontinued alcohol and tobacco use. His and modestly well over time but now developed evidence of gangrenous changes of the fifth toe and interspace between to screen for on the right foot. He has been seen by vascular surgery. The case is discussed with them. The plan is for angiography to evaluate his vessels to ensure that there is adequate blood flow before further surgical plans to the foot are provided. Overall goal is foot salvage given the left aucfv-vsb-ncir amputation has occurred. Amputation of more than just told the right foot could result in lack of ability to ambulate which would then have a direct impact on his longevity. Antibiotic therapy as well as Zosyn and vancomycin until we have further data. The course of antibiotic therapy after discharge will be determined by his response to therapy and the extent of the involvement of the infection after surgical interventions. Improve glucose control, adequate protein intake and a multivitamin along be helpful. 12/12/2017 patient has severe peripheral vascular disease. Plans for peripheral arthrectomy arm process and hopefully limb tong can be obtained. Continue current antibiotic therapy was final cultures are in process. We did discuss with the patient the importance of his cooperation and that he needs to stay in hospital, receive antibiotic therapy and hopefully surgical plan so that the right lower extremity may be salvage. 12/14/2017 the patient will have arthrectomy and possible bypass performed in near future. Continue current antibiotic therapy and then streamline after procedure if no other further cultures are available. Beta-hemolytic strep only isolated so far. The patient's vascular procedure and alcohol determine the course of antibiotic therapy. Current Visit: Yes Status: Acute Code(s): I96 - GANGRENE, NOT ELSEWHERE CLASSIFIED SNOMED Code(s): 62330538920566209 (2) Diabetic ulcer of right foot Current Visit: Yes Status: Acute Code(s): E11.621 - TYPE 2 DIABETES MELLITUS WITH FOOT ULCER; L97.519 - NON-PRS CHRONIC ULCER OTH PRT RIGHT FOOT W UNSP SEVERITY SNOMED Code(s): 010605271 (3) Peripheral vascular disease in diabetes mellitus Current Visit: Yes Status: Acute Code(s): E11.51 - TYPE 2 DIABETES W DIABETIC PERIPHERAL ANGIOPATH W/O GANGRENE SNOMED Code(s): 41840847
[2017-12-15] MEDS ORDERED: HALOPERIDOL LACTATE 5 MG/ML 1 ML VIAL IM STA ×2 (01:07→03:02)
[2017-12-15] MEDS: VANCOMYCIN 1,250 MG in SODIUM CHLORIDE 0.9% 250 ML IVPB SCH ×2 (05:34→16:40)
[2017-12-15 06:26] VITALS: PULSE 88
[2017-12-15] MEDS: LEVOTHYROXINE 137 MCG TAB PO SCH (06:36)
[2017-12-15 06:57] LABS: Glucose,Whole Blood 246 mg/dL (75-99)
[2017-12-15] MEDS: PIPERACILLIN-TAZOBACTAM 3.375 GM in DEXTROSE/WATER 1 50ML.BAG IVPB SCH ×3 (08:13→23:33)
[2017-12-15] MEDS: INSULIN ASPART 100 UNIT/ML 1 ML 10 ML VIAL SQ SCH ×8 (08:13→21:45)
[2017-12-15] MEDS: METOPROLOL TARTRATE 25 MG TAB PO SCH ×2 (08:14→21:12)
[2017-12-15] MEDS: LISINOPRIL 10 MG TAB PO SCH (08:14)
[2017-12-15] MEDS: amLODIPine 5 MG TAB PO SCH (08:14)
[2017-12-15] MEDS: FAMOTIDINE 20 MG TAB PO SCH ×2 (08:14→21:12)
[2017-12-15] MEDS: MELOXICAM 7.5 MG TAB PO SCH (08:14)
[2017-12-15] MEDS: MULTIVITAMINS, THERA 1 EACH TAB PO SCH (08:15)
[2017-12-15] MEDS: metFORMIN 500 MG TAB PO SCH ×2 (08:16→18:43)
[2017-12-15] MEDS: ALPRAZolam 0.25 MG TAB PO PRN (08:29)
[2017-12-15 09:58] LABS: Potassium 3.9 mmol/L (3.5-5.1)
[2017-12-15] MEDS ORDERED: SODIUM CHLORIDE 0.9% 1,000 ML in EMPTY BAG 1 BAG IV ONE (10:54)
[2017-12-15] MEDS ORDERED: ASPIRIN 325 MG TAB PO STA (10:58)
--- NOTE | 2017-12-15 11:29 | P.PN ---
Progress Note - Text Progress Note Date: 12/15/17 I was asked to see the patient per Dr. Ugarte for right lower extremity significant arterial disease. Patient was seen and examined. He has complaints of right lower extremity pain as well as ischemic changes noted at the toes. I reviewed aortogram with lower extremity angiogram which delineates significant atherosclerotic disease and stenosis at the popliteal and tibial vessels. He is scheduled for surgical intervention atherectomy today. I did see him on Monday and discussed this with him and his family which they were agreeable to the procedure. We also discussed potential chance for amputation if vascular improvement is not obtained. All questions were answered to his satisfaction.
[2017-12-15 11:53] LABS: Glucose,Whole Blood 77 mg/dL (75-99)
[2017-12-15] MEDS ORDERED: IV FLUID CONTINUATION 1,000 ML IV ONE (13:00)
[2017-12-15] MEDS ORDERED: MIDAZOLAM 2 MG/2 ML VIAL IVP ONE (13:04)
[2017-12-15] MEDS ORDERED: LIDOCAINE 2% INJ 20 MG/ML SQ ONE (13:06)
[2017-12-15] MEDS ORDERED: HEPARIN SODIUM 1,000 UN/ML (10ML VL) IV ONE (13:11)
[2017-12-15] MEDS ORDERED: IODIXANOL 270 MG/ML 50 ML ML INTRAARTER ONE (14:47)
[2017-12-15 15:53] LABS: Glucose,Whole Blood 88 mg/dL (75-99)
[2017-12-15] MEDS: SODIUM CHLORIDE 0.9% 1,000 ML IV SCH ×2 (16:23→23:35)
[2017-12-15] MEDS: CLOPIDOGREL 75 MG TAB PO SCH (17:20)
[2017-12-15] MEDS: ASPIRIN 81 MG PO SCH (17:20)
--- NOTE | 2017-12-15 18:56 | PN ---
PROGRESS NOTE DATE OF SERVICE: 12/15/2017 PRESENTING COMPLAINT: Right foot wound. INTERVAL HISTORY: This patient presented with gangrene of the right foot toe and wounds between the digits, found to have severe peripheral artery disease per angiogram; due to go for procedure this afternoon. Patient delirious last night and required some Haldol. Doing better this afternoon. REVIEW OF SYSTEMS: Done for constitutional, cardiovascular, GI, pulmonary; relevant findings as above. CURRENT MEDICATIONS: Reviewed. They include IV vancomycin and Zosyn. PHYSICAL EXAMINATION: Temperature 97.6, pulse 88, respiration 18, blood pressure 153/75, pulse ox 98% on room air. GENERAL APPEARANCE: Lying in bed, comfortable. EYES: Pupils equal. Conjunctivae normal. HEENT: External appearance of nose and ears normal. Oral cavity normal. NECK: JVD not raised. Mass not palpable. RESPIRATORY: Effort normal. LUNGS: Decreased breath sounds. CARDIOVASCULAR: First and second sounds normal. No edema. ABDOMEN: Soft, nontender. Liver and spleen not palpable. PSYCHIATRY: Alert and oriented x3. Mood and affect slightly anxious-appearing. EXTREMITIES: Left below-knee amputation. Right foot wound, including right small toe gangrene. INVESTIGATIONS: Potassium 3.9. BUN and creatinine are normal. Accu-Cheks are noted. ASSESSMENT: 1. Acute gangrene of the right foot little toe and cellulitis with kissing ulcer between the second and third toes secondary to severe peripheral artery disease. 2. Severe peripheral artery disease noted on angiogram, pending atherectomy this afternoon. 3. Severe onychomycosis of the toenails. 4. Diabetes mellitus, type 2, chronically on insulin, uncontrolled with hyperglycemia. 5. Hyperlipidemia. 6. Essential hypertension. 7. Primary osteoarthritis. 8. Hypothyroid. 9. Left below-knee amputation. 10.Chronic hard of hearing. 11.Acute delirium from infection, fluctuating. PLAN: Continue current medication and treatment plan. Continue with antibiotics. Await procedure this afternoon. MMODL / IJN: [id number] /
[2017-12-15 20:24] LABS: Glucose,Whole Blood 220 mg/dL (75-99)
[2017-12-15] MEDS ORDERED: ATORVASTATIN 80 MG TAB PO SCH (21:00)
[2017-12-15] MEDS: QUEtiapine 25 MG TAB PO SCH (21:12)
--- NOTE | 2017-12-15 23:25 | P.OP ---
Date of Procedure: 12/15/17 Preoperative Diagnosis: Right lower extremity critical limb ischemia, right popliteal artery occlusive disease approximately 90% Postoperative Diagnosis: Same, microperforation of the distal popliteal artery Procedure(s) Performed: 1. Right lower extremity selective angiogram with percutaneous atherectomy with diamondback device, percutaneous transluminal balloon angioplasty of the right popliteal artery and covered stent placement. 2. Ultrasound-guided access of the left common femoral artery. 3. Placement of a 6-[place] Angio-Seal Implants: Viabahn stent Anesthesia: MAC, local Surgeon: Quan Brown Estimated Blood Loss (ml): 15 IV fluids (ml): 400 Pathology: none sent Condition: stable Disposition: floor Indications for Procedure: This is a 62-year-old gentleman who is currently being treated at the hospital secondary to right digit ischemia and ulceration. He underwent an aortogram with bilateral lower extremity angiograms which demonstrated right lower extremity popliteal artery atherosclerotic disease with significant stenosis of approximately 90%. Due to the patient's ischemic wound in his digits and his significant atherosclerotic, calcifications at the popliteal artery he was brought to the [facility] for endovascular intervention with atherectomy. Operative Findings: Dense calcification of the right popliteal artery with approximately 90% stenosis with some areas of chronic total occlusion. After balloon angioplasty and atherectomy small microperforation was noted. Description of Procedure: After written informed consent was obtained the patient all risks benefits competitions were described patient was brought to the [facility] and laid in a supine position. The area of the groins were prepped and draped in usual sterile fashion. A moderate sedation was then performed with Versed. Timeout was performed in normal fashion with all parties are in agreement. Utilizing ultrasound the left common femoral artery was visualized and shown to be patent with mild calcifications. The vessel was then cannulated and utilizing Seldinger technique a 5-[place] sheath was placed. 035 Glidewire advantage was then placed followed by an RBI catheter and the right common iliac artery was then accessed in an up and over fashion. RBI catheter was then removed as well as the 5-[place] sheath and a 6-[place] RAABE sheath was then placed at the level of the femoral artery. Selective angiogram was then obtained of the right lower extremity demonstrating significant disease at the popliteal artery just distal to the Jerry's canal extending distal past the knee just proximal to the tibial peroneal trunk. A 35 wire was then attempted to be placed across the lesion with out success therefore an 014 Hi-Torque [place] wire was then utilized to cross the lesion. Once across a 014 quick cross catheter was placed distal to the lesion. Angiogram was obtained demonstrating successful intraluminal crossing of the lesion. An 014 [place] wire was then placed and the diamondback device was then guided just proximal to the lesion. Multiple passes were then performed in a low medium and high speed. Once completed angiogram was obtained demonstrating marked improvement of the lumen approximately 50%. Percutaneous transluminal balloon angioplasty was then performed after removal of the diamondback device with an inpact 5 x 150 mm drug-eluting balloon. Angiogram was then obtained after removal of the balloon demonstrating a microperforation and small dissection just distal to the joint. Balloon angioplasty was then performed once again multiple times with long inflation upwards of 6 minutes without improvement of the microperforation. Due to the microperforation a covered stent was then chosen to be deployed. The 014 wire was then removed replaced with a V 18 wire. A 5 x 100 mm Viabahn stent was placed across the lesion. A 5 x 100 mm [place] balloon was then placed and balloon angioplasty within the stent was performed. Final angiogram was obtained demonstrating brisk flow through the stent without evidence of extravasation. Distally the tibioperoneal trunk was patent with good flow to the foot. All guidewires and catheters were removed the Up & Over sheath was removed over a Glidewire and a 6-[place] Angio-Seal was then placed in normal fashion. Patient tolerated the procedure well and was sent to PACU for recovery. Patient had a palpable DP pulse at the conclusion of the procedure.
[2017-12-15] MEDS: INSULIN DETEMIR 100 UNIT/ML 10 ML VIAL SQ SCH (23:33)
[2017-12-16] MEDS: SODIUM CHLORIDE 0.9% 1,000 ML IV SCH (04:26)
[2017-12-16] MEDS: VANCOMYCIN 1,250 MG in SODIUM CHLORIDE 0.9% 250 ML IVPB SCH (04:31)
[2017-12-16 05:54] LABS: Glucose,Whole Blood 410 mg/dL (75-99)
[2017-12-16] MEDS: ALPRAZolam 0.25 MG TAB PO PRN ×2 (06:50→11:39)
[2017-12-16] MEDS: LEVOTHYROXINE 137 MCG TAB PO SCH (06:50)
[2017-12-16] MEDS: metFORMIN 500 MG TAB PO SCH (06:50)
[2017-12-16 07:06] LABS: Calcium 9.3 mg/dL (8.4-10.2); Potassium 4.3 mmol/L (3.5-5.1)
[2017-12-16] MEDS: INSULIN ASPART 100 UNIT/ML 1 ML 10 ML VIAL SQ SCH ×4 (07:08→11:40)
--- NOTE | 2017-12-16 07:31 | P.PN ---
Subjective Progress Note Date: 12/15/17 62 year old male with a history of peripherial vascular disease and left below- the-knee amputation in 2007 due to his severe peripheral vascular disease. It is related at that time with the help of the patient's about his history, that he had severe peripheral vascular disease that was caused from his tobacco use. After his amputation he stopped his heavy tobacco use and also stopped his alcohol abuse. Since that time he's had an improvement of his status. However recently the went to do some foot care and noticed that there was some gangrenous changes to the right foot fifth toe into the interspace between the third and fourth toe. With that he was brought in the hospital for further intervention. He has been seen by vascular surgery and angiography has been scheduled to evaluate the blood flow to the right leg since the surgical plan can be devised. Primary goal will be to salvage the right lower extremity, double amputees often have great difficulty with ambulation and often in a relatively short period of time. Antibiotic therapy to be advised. 12/12/2017 patient is a angiography performed and appears to need peripheral arthrectomy procedures which are yet to be scheduled. The patient has significant agitation. With the nurse present we try to calm the patient and have him understand the significant importance of his current care. Current goal is salvage of the right lower extremity see does not have another amputation. 12/14/2017 vein mapping today with bypass planned soon for his critical ischemia lower extremity 12/15/2017 the patient has just returned from his arterial bypass procedure , comfortable sedated at this time Objective - Vital Signs Vital signs: Vital Signs Temp 97.9 F 12/16/17 04:00 Pulse 88 12/15/17 06:26 Resp 16 12/16/17 04:00 BP 140/67 12/16/17 04:00 Pulse Ox 95 12/16/17 04:00 Intake & Output 12/15/17 12/16/17 12/16/17 18:59 06:59 18:59 Intake Total 650 Output Total 400 Balance 250 Weight 64 kg Intake: IV 400 Intake, IV Titration 250 Amount Vancomycin 1,250 mg In 250 Sodium Chloride 0.9% 250 ml @ 125 mls/hr IVPB Q12H JOANN Rx#:[id number] Output: Urine 400 Other: Voiding Method Urinal Urinal Incontinent Incontinent # Voids 2 # Bowel Movements 1 - Exam 62-year-old male who looks older than his stated age HEENT: Anicteric conjunctiva are pink and moist nasal mucosa grossly intact without significant lesions, there is no thrush. Poor dentition Neck: The neck is supple without significant lymphadenopathy or thyromegaly. Lungs: Symmetrical air entry with evidence of some expiratory wheezes but no vaishnavi bronchial sounds no dullness or egophony Heart: Regular rate and rhythm with an audible S1-S2, no S3 loud S4 There is no significant murmur click or rub, PMI was nondisplaced. Abdomen: Mildly obese Positive bowel sounds soft and nontender without palpable masses or organomegaly. There was no guarding or rebound. Extremities: The upper extremities have symmetric pulses no significant petechiae or telangiectasia. No splinter hemorrhages were noted. Left lower extremity residual limb is without ulceration. Right lower extremity has evidence of the gangrenous changes to the fifth toe as well as interspaced between toes 3 and 4 with some mild erythema without purulent drainage vascular compression device in place Neuro: Patient is sedated - Labs CBC & Chem 7: 12/09/17 00:30 12/16/17 06:33 Labs: Abnormal Lab Results - Last 24 Hours (Table) 12/15/17 12/15/17 12/16/17 Range/Units 09:01 20:22 05:51 Carbon Dioxide (22-30) mmol/L Glucose 175 H (74-99) mg/dL POC Glucose (mg/dL) 220 H 410 H (75-99) mg/dL 12/16/17 Range/Units 06:33 Carbon Dioxide 12 L (22-30) mmol/L Glucose 387 H (74-99) mg/dL POC Glucose (mg/dL) (75-99) mg/dL Laboratory Results WBC 11.7 k/uL (3.8-10.6) H 12/09/17 00:30 RBC 3.85 m/uL (4.30-5.90) L 12/09/17 00:30 Hgb 11.1 gm/dL (13.0-17.5) L 12/09/17 00:30 Hct 33.4 % (39.0-53.0) L 12/09/17 00:30 MCV 86.6 fL (80.0-100.0) 12/09/17 00:30 MCH 28.8 pg (25.0-35.0) 12/09/17 00:30 MCHC 33.3 g/dL (31.0-37.0) 12/09/17 00:30 RDW 14.0 % (11.5-15.5) 12/09/17 00:30 Plt Count 498 k/uL (150-450) H 12/09/17 00:30 Neutrophils % 69 % 12/09/17 00:30 Lymphocytes % 19 % 12/09/17 00:30 Monocytes % 5 % 12/09/17 00:30 Eosinophils % 6 % 12/09/17 00:30 Basophils % 0 % 12/09/17 00:30 Neutrophils # 8.0 k/uL (1.3-7.7) H 12/09/17 00:30 Lymphocytes # 2.2 k/uL (1.0-4.8) 12/09/17 00:30 Monocytes # 0.5 k/uL (0-1.0) 12/09/17 00:30 Eosinophils # 0.7 k/uL (0-0.7) 12/09/17 00:30 Basophils # 0.0 k/uL (0-0.2) 12/09/17 00:30 ESR 51 mm/hr (0-15) H 12/09/17 00:30 Sodium 140 mmol/L (137-145) 12/16/17 06:33 Potassium 4.3 mmol/L (3.5-5.1) 12/16/17 06:33 Chloride 104 mmol/L (98-107) 12/16/17 06:33 Carbon Dioxide 12 mmol/L (22-30) L 12/16/17 06:33 Anion Gap 24 mmol/L 12/16/17 06:33 BUN 20 mg/dL (9-20) 12/16/17 06:33 Creatinine 1.20 mg/dL (0.66-1.25) 12/16/17 06:33 Est GFR (CKD-EPI)AfAm 75 (>60 ml/min/1.73 sqM) 12/16/17 06:33 Est GFR (CKD-EPI)NonAf 65 (>60 ml/min/1.73 sqM) 12/16/17 06:33 Glucose 387 mg/dL (74-99) H 12/16/17 06:33 POC Glucose (mg/dL) 410 mg/dL (75-99) H 12/16/17 05:51 POC Glu Washroom Attendant ID Mari Bedolla 12/16/17 05:51 Calcium 9.3 mg/dL (8.4-10.2) 12/16/17 06:33 Total Bilirubin 0.2 mg/dL (0.2-1.3) 12/09/17 00:30 AST 22 U/L (17-59) 12/09/17 00:30 ALT 22 U/L (21-72) 12/09/17 00:30 Alkaline Phosphatase 78 U/L (38-126) 12/09/17 00:30 C-Reactive Protein 10.0 mg/L (<10.0) H 12/09/17 00:30 Total Protein 6.4 g/dL (6.3-8.2) 12/09/17 00:30 Albumin 3.6 g/dL (3.5-5.0) 12/09/17 00:30 Vancomycin Trough 15.4 ug/mL 12/11/17 14:55 Microbiology 12/09/17 00:30 Blood Blood Culture - Final No Growth after 144 hours 12/09/17 00:30 Foot - Right Gram Stain - Final 12/09/17 00:30 Foot - Right Wound Culture - Final Beta Hemolytic Streptococcus F Assessment and Plan (1) Gangrene of toe of right foot Narrative/Plan: 62-year-old male has a history of prior heavy tobacco use and alcohol use did have a left [id number] amputation done in 2007 which point in time he discontinued alcohol and tobacco use. His and modestly well over time but now developed evidence of gangrenous changes of the fifth toe and interspace between to screen for on the right foot. He has been seen by vascular surgery. The case is discussed with them. The plan is for angiography to evaluate his vessels to ensure that there is adequate blood flow before further surgical plans to the foot are provided. Overall goal is foot salvage given the left [id number] amputation has occurred. Amputation of more than just told the right foot could result in lack of ability to ambulate which would then have a direct impact on his longevity. Antibiotic therapy as well as Zosyn and vancomycin until we have further data. The course of antibiotic therapy after discharge will be determined by his response to therapy and the extent of the involvement of the infection after surgical interventions. Improve glucose control, adequate protein intake and a multivitamin along be helpful. 12/12/2017 patient has severe peripheral vascular disease. Plans for peripheral arthrectomy arm process and hopefully limb tong can be obtained. Continue current antibiotic therapy was final cultures are in process. We did discuss with the patient the importance of his cooperation and that he needs to stay in hospital, receive antibiotic therapy and hopefully surgical plan so that the right lower extremity may be salvage. 12/14/2017 the patient will have arthrectomy and possible bypass performed in near future. Continue current antibiotic therapy and then streamline after procedure if no other further cultures are available. Beta-hemolytic strep only isolated so far. The patient's vascular procedure and outcome determine the course of antibiotic therapy. 12/15/2017 the patient has had is bypass procedure in this postoperative period comfortable at this time. As noted the effectiveness of this procedure will determine the course of antibiotic therapy over the next few days. We'll be able to discontinue vancomycin at this time based on prior cultures. Current Visit: Yes Status: Acute Code(s): I96 - GANGRENE, NOT ELSEWHERE CLASSIFIED SNOMED Code(s): 94901953577599901 (2) Diabetic ulcer of right foot Current Visit: Yes Status: Acute Code(s): E11.621 - TYPE 2 DIABETES MELLITUS WITH FOOT ULCER; L97.519 - NON-PRS CHRONIC ULCER OTH PRT RIGHT FOOT W UNSP SEVERITY SNOMED Code(s): 366087047 (3) Peripheral vascular disease in diabetes mellitus Current Visit: Yes Status: Acute Code(s): E11.51 - TYPE 2 DIABETES W DIABETIC PERIPHERAL ANGIOPATH W/O GANGRENE SNOMED Code(s): 00365462
[2017-12-16] MEDS: FAMOTIDINE 20 MG TAB PO SCH (09:58)
[2017-12-16] MEDS: METOPROLOL TARTRATE 25 MG TAB PO SCH (09:58)
[2017-12-16] MEDS: CLOPIDOGREL 75 MG TAB PO SCH (09:58)
[2017-12-16] MEDS: MELOXICAM 7.5 MG TAB PO SCH (09:58)
[2017-12-16] MEDS: ASPIRIN 81 MG PO SCH (09:58)
[2017-12-16] MEDS: LISINOPRIL 10 MG TAB PO SCH (09:59)
[2017-12-16] MEDS: amLODIPine 5 MG TAB PO SCH (09:59)
[2017-12-16] MEDS: PIPERACILLIN-TAZOBACTAM 3.375 GM in DEXTROSE/WATER 1 50ML.BAG IVPB SCH (11:14)
[2017-12-16] MEDS: MULTIVITAMINS, THERA 1 EACH TAB PO SCH (11:41)
[2017-12-16 12:10] LABS: Glucose,Whole Blood 326 mg/dL (75-99)
[2017-12-16 12:48] VITALS: BP 100/58; RESP 18; TEMP 97.5
--- NOTE | 2017-12-16 12:54 | PN ---
PROGRESS NOTE This patient had angiogram done for gangrene of the right foot fifth toe. Patient has infrapopliteal SFA occlusive disease. The patient had an atherectomy and balloon angioplasty done yesterday. On examination today, patient had femoral pulses present, dorsal pedis palpable. Patient has dry gangrene of the 5th toe and there is a superficial ulcer between 3rd and 4th toe. PLAN: Patient is going home today. The patient will be on Plavix 75 mg daily and Medihoney gel to the to the 3rd and 4th toe and I will follow in my office on Monday. MMODL / IJN: [id number] /
--- NOTE | 2017-12-17 17:43 | P.DS ---
Providers Date of admission: 12/09/17 02:47 Attending physician: Michael Marie Consults: 12/09/17 01:56 Consult Physician Stat Consulting Provider: Aakash Brian Consult Reason/Comments: Diabetic ulcer, Right toe gangrene Do you want consulting provider notified?: Yes, Notify in am Consult Physician Stat Consulting Provider: Clarence Ugarte Consult Reason/Comments: Right toe gangrene, Left leg BKA Do you want consulting provider notified?: Yes, Notify in am Primary care physician: Tom [facility] Course: Patient was admitted for gangrene of the right foot fifth toe patient had infrapopliteal SFA occlusive disease underwent a thyrotomy balloon angioplasty did well patient has strep species and the wounds of the right foot. Patient is cleared for discharge from vascular and infectious disease perspective and is being discharged on Augmentin for a week. Please refer to dictation from Dr. Marie for further details of chronic medical problems hospitalization course Patient Condition at Discharge: Stable Plan - Discharge Summary New Discharge Prescriptions: New Clopidogrel [Plavix] 75 mg PO DAILY #30 tab QUEtiapine [SEROquel] 25 mg PO HS PRN #20 tab PRN Reason: Agitation Amoxic-Pot Clav 875-125Mg [Augmentin 875-125] 1 tab PO Q12HR #14 tablet Continue Insulin Detemir [Levemir] 18 unit SQ HS Insulin Aspart [NovoLOG (formulary)] See Protocol SQ AC-TID Famotidine [Pepcid] 20 mg PO BID Atorvastatin [Lipitor] 10 mg PO HS Metoprolol Tartrate [Lopressor] 25 mg PO BID Meloxicam [Mobic] 7.5 mg PO DAILY Lisinopril [Zestril] 10 mg PO DAILY Levothyroxine Sodium [Synthroid] 137 mcg PO DAILY metFORMIN HCL 1,000 mg PO BID Discontinued amLODIPine [Norvasc] 5 mg PO DAILY Discharge Medication List Atorvastatin [Lipitor] 10 mg PO HS 12/17/15 [History] Famotidine [Pepcid] 20 mg PO BID 12/17/15 [History] Insulin Aspart [NovoLOG (formulary)] See Protocol SQ AC-TID 12/17/15 [History] Insulin Detemir [Levemir] 18 unit SQ HS 12/17/15 [History] Meloxicam [Mobic] 7.5 mg PO DAILY 12/17/15 [History] Metoprolol Tartrate [Lopressor] 25 mg PO BID 12/17/15 [History] Levothyroxine Sodium [Synthroid] 137 mcg PO DAILY 12/08/17 [History] Lisinopril [Zestril] 10 mg PO DAILY 12/08/17 [History] metFORMIN HCL 1,000 mg PO BID 12/08/17 [History] Amoxic-Pot Clav 875-125Mg [Augmentin 875-125] 1 tab PO Q12HR #14 tablet [Rx] Clopidogrel [Plavix] 75 mg PO DAILY #30 tab 12/16/17 [Rx] QUEtiapine [SEROquel] 25 mg PO HS PRN #20 tab 12/16/17 [Rx] Follow up Appointment(s)/Referral(s): Myles Barnes MD [Primary Care Provider] - 1-2 days Clarence Ugarte MD [STAFF PHYSICIAN] - 1 Week Discharge Disposition: HOME SELF-CARE
--- NOTE | 2017-12-18 10:08 | IR ---
EXAMINATION TYPE: IR stent intravas non coronary DATE OF EXAM: 12/15/2017 COMPARISON: NONE HISTORY: Peripheral vascular occlusive disease. Fluoroscopy was provided to the referring clinician. See dictated report from cardiology. 26 minute s of fluoroscopy utilized.
== END 2017-12-16 16:06 | disposition home or self-care (01) | DRG 271 ==
LOC: EC 22:41 → 4MS4W 12-09 02:47 → 6SEL 12-10 10:27 → 4MS4W 12-11 18:30 → 6SEL 12-15 15:06
PROVIDERS: ADMIT Hospitalist; ATTEND Hospitalist
PROC: B41F1ZZ Fluoroscopy of Right Lower Extremity Arteries using Low Osmolar Contrast (ICD-10-PCS; principal; 2017-12-10 09:00)
PROC: B44HZZZ Ultrasonography of Bilateral Lower Extremity Arteries (ICD-10-PCS; 2017-12-13)
PROC: 04CM3ZZ Extirpation of Matter from Right Popliteal Artery, Percutaneous Approach (ICD-10-PCS; 2017-12-15)
PROC: 047M34Z Dilation of Right Popliteal Artery with Drug-eluting Intraluminal Device, Percutaneous Approach (ICD-10-PCS; 2017-12-15)
DX: E11.52 Type 2 diabetes mellitus with diabetic peripheral angiopathy with gangrene (principal); I96 Gangrene, not elsewhere classified; E11.42 Type 2 diabetes mellitus with diabetic polyneuropathy; E11.621 Type 2 diabetes mellitus with foot ulcer; F05 Delirium due to known physiological condition; L97.519 Non-pressure chronic ulcer of other part of right foot with unspecified severity; L03.031 Cellulitis of right toe; B35.1 Tinea unguium; E78.5 Hyperlipidemia, unspecified; I10 Essential (primary) hypertension; M19.91 Primary osteoarthritis, unspecified site; E03.9 Hypothyroidism, unspecified; F32.9 Major depressive disorder, single episode, unspecified; E11.65 Type 2 diabetes mellitus with hyperglycemia; I99.8 Other disorder of circulatory system; H91.90 Unspecified hearing loss, unspecified ear; Z79.4 Long term (current) use of insulin; Z79.899 Other long term (current) drug therapy; Z79.890 Hormone replacement therapy; Z89.512 Acquired absence of left leg below knee; Z79.1 Long term (current) use of non-steroidal anti-inflammatories (NSAID); Z82.5 Family history of asthma and other chronic lower respiratory diseases; Z87.891 Personal history of nicotine dependence; Z90.89 Acquired absence of other organs; I69.311 Memory deficit following cerebral infarction; Z97.14 Presence of artificial left leg (complete) (partial); Z86.14 Personal history of Methicillin resistant Staphylococcus aureus infection; Z83.3 Family history of diabetes mellitus; Z82.49 Family history of ischemic heart disease and other diseases of the circulatory system
CPT/HCPCS: 36200; 36415; 37227; 75710; 80048; 80053; 80202; 82565; 85025; 85652; 86140; 87040; 87070; 87205; 96365; 96366; 99285

== ENCOUNTER 2023-06-17 19:59 | Inpatient (IN) | payer MEDICARE, OTHER ==
--- NOTE | 2023-06-17 20:15 | ED ---
Altered Mental Status HPI - General Stated Complaint: Altered Mental Status Time Seen by Provider: 06/17/23 20:10 Source: RN notes reviewed, old records reviewed Mode of arrival: EMS Limitations: no limitations - History of Present Illness Initial Comments: This is a 67-year-old male DF for evaluation. Patient accepted in transfer from [facility] for evaluation of possibility of CVA he presented for altered mental status and transferred to our hospital after imaging and evaluation for neurology to see MD Complaint: altered mental status Severity: mild Consistency of Symptoms: waxing and waning Associated Symptoms: denies other symptoms Treatments Prior to Arrival: IV fluid - Related Data Home Medications Medication Instructions Recorded Confirmed INSULIN ASPART (NovoLOG) [NovoLOG See Protocol SQ TID-W/MEALS PRN 12/17/15 06/17/23 (formulary)] Metoprolol Tartrate [Lopressor] 25 mg PO BID 12/17/15 06/17/23 Levothyroxine Sodium [Synthroid] 137 mcg PO DAILY 12/08/17 06/17/23 ALPRAZolam [Xanax] 0.25 mg PO DAILY PRN 06/17/23 06/17/23 Aspirin EC [Ecotrin Low Dose] 81 mg PO DAILY 06/17/23 06/17/23 Donepezil [Aricept] 10 mg PO HS 06/17/23 06/17/23 Glucagon Emergency Kit 1 mg IM ONCE PRN 06/17/23 06/17/23 Vitamin B Complex With Vitamin C 1 tab PO DAILY 06/17/23 06/17/23 (Unknown Strength) traZODone HCL [Desyrel] 50 mg PO HS 06/17/23 06/17/23 Previous Rx's Medication Instructions Recorded Clopidogrel [Plavix] 75 mg PO DAILY #30 tab 12/16/17 Atorvastatin [Lipitor] 20 mg PO DAILY #30 tab 06/20/23 Famotidine [Pepcid] 20 mg PO HS #30 tab 06/20/23 Insulin Glargine,Hum.rec.anlog 30 units SQ HS #0 06/20/23 [Lantus Solostar Pen] Memantine [Namenda] 5 mg PO BID #60 tab 06/20/23 amLODIPine [Norvasc] 10 mg PO HS #30 tablet 06/20/23 Allergies Allergy/AdvReac Type Severity Reaction Status Date / Time No Known Allergies Allergy Verified 06/17/23 20:36 Review of Systems ROS Statement: Those systems with pertinent positive or pertinent negative responses have been documented in the HPI. ROS Other: All systems not noted in ROS Statement are negative. Past Medical History Past Medical History: CVA/TIA, Diabetes Mellitus, Hyperlipidemia, Hypertension, Memory Impairment, Osteoarthritis (OA), Thyroid Disorder Additional Past Medical History / Comment(s): stroke age 51 left with short term memory problems. 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 Past Psychological History: Depression Additional Psychological History / Comment(s): lives with the and the family home. Medically disabled. Tobacco smoker until 2007. Alcohol abuse until 2007 which is when he had a leg amputation. Pet dog in the home. No experience. 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 Absent: scleral icterus, conjunctival injection, periorbital swelling ENT exam: Present: normal exam, mucous membranes moist Neck exam: Present: normal inspection. Absent: tenderness, meningismus, lymp hadenopathy Respiratory exam: Present: normal lung sounds bilaterally. Absent: respiratory distress, wheezes, rales, rhonchi, stridor Cardiovascular Exam: Present: regular rate, normal rhythm, normal heart sounds. Absent: systolic murmur, diastolic murmur, rubs, gallop, clicks GI/Abdominal exam: Present: soft, normal bowel sounds. Absent: distended, tenderness, guarding, rebound, rigid Extremities exam: Present: normal inspection, full ROM, normal capillary refill. Absent: tenderness, pedal edema, joint swelling, calf tenderness Back exam: Present: normal inspection Neurological exam: Present: alert, oriented X3, CN II-XII intact Psychiatric exam: Present: normal affect, normal mood Skin exam: Present: warm, dry, intact, normal color. Absent: rash Course Vital Signs 06/17/23 06/17/23 06/17/23 20:14 20:30 22:30 Temperature 98.6 F Pulse Rate 74 Respiratory 18 Rate Blood Pressure 207/112 175/110 204/66 O2 Sat by Pulse 98 Oximetry 06/17/23 06/17/23 06/18/23 22:38 22:56 01:08 Temperature Pulse Rate 78 89 Respiratory 18 18 Rate Blood Pressure 195/112 188/105 134/80 O2 Sat by Pulse 98 98 Oximetry - Reevaluation(s) Reevaluation #1: 06/17/23 20:37 Medical record is reviewed Reevaluation #2: 06/17/23 22:28 Patient has no change in symptoms here in the ER Reevaluation #3: 06/17/23 22:28 Patient informed results questions answered Reevaluation #4: 06/17/23 20:31 Was pt. sent in by a medical professional or institution (DIONNE Barr, FPGA ENGINEER, urgent care, hospital, or senior care...) When possible be specific @ -no Did you speak to anyone other than the patient for history (EMS, parent, family, police, friend...)? What history was obtained from this source @ -no Did you review nursing and triage notes (agree or disagree)? Why? @ -agree Are old charts reviewed (outside hosp., previous admission, EMS record, old EKG, old radiological studies, urgent care reports/EKG's, senior care records)? Report findings @ -yes Differential Diagnosis (chest pain, altered mental status, abdominal pain women, abdominal pain men, vaginal bleeding, weakness, fever, dyspnea, syncope, headache, dizziness, GI bleed, back pain, seizure, CVA, palpatations, mental health, musculoskeletal)? @ -prior EKG interpreted by me (3pts min.). @ -no X-rays interpreted by me (1pt min.). @ -no CT interpreted by me (1pt min.). @ -no U/S interpreted by me (1pt. min.). @ -no What testing was considered but not performed or refused? (CT, X-rays, U/S, labs)? Why? @ -none What meds were considered but not given or refused? Why? @ -none Did you discuss the management of the patient with other professionals (professionals i.e. Dr., PA, FPGA ENGINEER, lab, RT, psych nurse, outreach and education social worker, emu farm worker, teacher, environmental health officer, cyanide case hardener)? Give summary @ -no Was smoking cessation discussed for >3mins.? @ -no Was critical care preformed (if so, how long)? @ -no Were there social determinants of health that impacted care today? How? (Homelessness, low income, unemployed, alcoholism, drug addiction, transportation, low edu. Level, literacy, decrease access to med. care, longterm, rehab)? @ -none Was there de-escalation of care discussed even if they declined (Discuss DNR or withdrawal of care, Hospice)? DNR status @ -no What co-morbidities impacted this encounter? (DM, HTN, Smoking, COPD, CAD, Cancer, CVA, ARF, Chemo, Hep., AIDS, mental health diagnosis, sleep apnea, morb id obesity)? @ -none Was patient admitted / discharged? Hospital course, mention meds given and rou te, prescriptions, significant lab abnormalities, going to OR and other pertinent info. @ - 67 male to the emergency department for evaluation today. Patient accepted in transfer for altered mental status, patient was initially told he may have CVA symptoms of prior hospital bed normal and stable CT brain and CTA had neck and patient will be admitted for neurology evaluation management Admitted Undiagnosed new problem with uncertain prognosis? @ -no Drug Therapy requiring intensive monitoring for toxicity (Heparin, Nitro, Insulin, Cardizem)? @ -no Were any procedures done? @ -no Diagnosis/symptom? @ -Altered mental status, TIA Acute, or Chronic, or Acute on Chronic? @ -Acute Uncomplicated (without systemic symptoms) or Complicated (systemic symptoms)? @ -Complicated Side effects of treatment? @ -no Exacerbation, Progression, or Severe Exacerbation? @ -exacerbation Poses a threat to life or bodily function? How? (Chest pain, USA, DC, pneumonia, PE, COPD, DKA, ARF, appy, cholecystitis, CVA, Diverticulitis, Homicidal, Suicidal, threat to staff... and all critical care pts) @ -yes Reevaluation #5: 06/17/23 20:37 Differential Altered Mental Status: Hypoglycemia, DKA, hypercapnia, ETOH, overdose, CO poisoning, trauma, myxedema c aga, HTN encephalopathy, infection, encephalitis, psychosis, intercranial hemorrhage, hepatic encephalopathy, meningitis, CVA, this is not meant to be an all-inclusive list - Consultations Consultation #1: Spoke with [facility] who will admit this patient Medical Decision Making - Medical Decision Making 67 male to the emergency department for evaluation today. Patient accepted in transfer for altered mental status, patient was initially told he may have CVA symptoms of prior hospital bed normal and stable CT brain and CTA had neck and patient will be admitted for neurology evaluation management - Lab Data Result diagrams: 06/20/23 10:40 06/20/23 10:40 Lab Results 06/17/23 06/17/23 06/17/23 Range/Units 20:44 20:44 20:44 WBC 4.8 (3.8-10.6) k/uL RBC 4.90 (4.30-5.90) m/uL Hgb 14.6 (13.0-17.5) gm/dL Hct 44.1 (39.0-53.0) % MCV 90.0 (80.0-100.0) fL MCH 29.9 (25.0-35.0) pg MCHC 33.2 (31.0-37.0) g/dL RDW 14.2 (11.5-15.5) % Plt Count 278 (150-450) k/uL MPV 6.7 Neutrophils % 65 % Lymphocytes % 19 % Monocytes % 9 % Eosinophils % 3 % Basophils % 1 % Neutrophils # 3.1 (1.3-7.7) k/uL Lymphocytes # 0.9 L (1.0-4.8) k/uL Monocytes # 0.4 (0-1.0) k/uL Eosinophils # 0.2 (0-0.7) k/uL Basophils # 0.1 (0-0.2) k/uL PT 10.1 (10.0-12.5) sec INR 0.9 (<1.2) APTT 22.8 (22.0-30.0) sec Sodium 137 (137-145) mmol/L Potassium 3.9 (3.5-5.1) mmol/L Chloride 105 (98-107) mmol/L Carbon Dioxide 23 (22-30) mmol/L Anion Gap 9 mmol/L BUN 32 H (9-20) mg/dL Creatinine 1.98 H (0.66-1.25) mg/dL Est GFR (CKD-EPI)AfAm 39 (>60 ml/min/1.73 sqM) Est GFR (CKD-EPI)NonAf 34 (>60 ml/min/1.73 sqM) Glucose 205 H (74-99) mg/dL POC Glucose (mg/dL) (70-110) mg/dL POC Glu Mix House Operator ID Calcium 9.1 (8.4-10.2) mg/dL Total Bilirubin 0.6 (0.2-1.3) mg/dL AST 28 (17-59) U/L ALT 25 (4-49) U/L Alkaline Phosphatase 72 (38-126) U/L Ammonia (<30) umol/L Troponin I (0.000-0.034) ng/mL Total Protein 6.7 (6.3-8.2) g/dL Albumin 3.6 (3.5-5.0) g/dL Serum Alcohol <10 mg/dL 06/17/23 06/17/23 06/17/23 Range/Units 20:44 20:44 20:47 WBC (3.8-10.6) k/uL RBC (4.30-5.90) m/uL Hgb (13.0-17.5) gm/dL Hct (39.0-53.0) % MCV (80.0-100.0) fL MCH (25.0-35.0) pg MCHC (31.0-37.0) g/dL RDW (11.5-15.5) % Plt Count (150-450) k/uL MPV Neutrophils % % Lymphocytes % % Monocytes % % Eosinophils % % Basophils % % Neutrophils # (1.3-7.7) k/uL Lymphocytes # (1.0-4.8) k/uL Monocytes # (0-1.0) k/uL Eosinophils # (0-0.7) k/uL Basophils # (0-0.2) k/uL PT (10.0-12.5) sec INR (<1.2) APTT (22.0-30.0) sec Sodium (137-145) mmol/L Potassium (3.5-5.1) mmol/L Chloride (98-107) mmol/L Carbon Dioxide (22-30) mmol/L Anion Gap mmol/L BUN (9-20) mg/dL Creatinine (0.66-1.25) mg/dL Est GFR (CKD-EPI)AfAm (>60 ml/min/1.73 sqM) Est GFR (CKD-EPI)NonAf (>60 ml/min/1.73 sqM) Glucose (74-99) mg/dL POC Glucose (mg/dL) 180 H (70-110) mg/dL POC Glu Mix House Operator ID Lilo Huber Calcium (8.4-10.2) mg/dL Total Bilirubin (0.2-1.3) mg/dL AST (17-59) U/L ALT (4-49) U/L Alkaline Phosphatase (38-126) U/L Ammonia <9 (<30) umol/L Troponin I 0.031 (0.000-0.034) ng/mL Total Protein (6.3-8.2) g/dL Albumin (3.5-5.0) g/dL Serum Alcohol mg/dL - EKG Data -: EKG Interpreted by Me (EKG is sinus 75 HI 170 QRS 84 QTc 412) - Radiology Data Radiology results: report reviewed, image reviewed Disposition Clinical Impression: Altered mental status, TIA (transient ischemic attack), Hypertension Disposition: ADMITTED IP TO THIS [facility] Condition: Fair Is patient prescribed a controlled substance at d/c from ED?: No Time of Disposition: 22:35
[2023-06-17] MEDS ORDERED: SODIUM CHLORIDE 0.9% 1,000 ML IV ONE (20:27)
[2023-06-17] MEDS: SODIUM CHLORIDE 0.9% 1,000 ML IV SCH ×2 (20:47→22:32)
[2023-06-17 20:49] LABS: Glucose,Whole Blood 180 mg/dL (70-110)
[2023-06-17 20:56] LABS: Basophils # (A) 0.1 k/uL (0-0.2); Basophils % (A) 1 %; Eosinophils # (A) 0.2 k/uL (0-0.7); Eosinophils % (A) 3 %; HCT 44.1 % (39.0-53.0); HGB 14.6 gm/dL (13.0-17.5); Lymphocytes # (A) 0.9 k/uL (1.0-4.8); Lymphocytes % (A) 19 %; MCH 29.9 pg (25.0-35.0); MCHC 33.2 g/dL (31.0-37.0); Mean Platelet Volume 6.7; Monocytes # (A) 0.4 k/uL (0-1.0); Monocytes % (A) 9 %; Neutrophils # (A) 3.1 k/uL (1.3-7.7); Neutrophils % (A) 65 %; Platelet Count 278 k/uL (150-450); RDW 14.2 % (11.5-15.5); WBC 4.8 k/uL (3.8-10.6)
[2023-06-17 21:06] LABS: ALT 25 U/L (4-49); AST 28 U/L (17-59); African American GFR (CKD) 39 (>60 ml/min/1.73 sqM); Albumin 3.6 g/dL (3.5-5.0); Alcohol <10 mg/dL; Alkaline Phosphatase 72 U/L (38-126); Anion Gap 9 mmol/L; Blood Urea Nitrogen 32 mg/dL (9-20); Calcium 9.1 mg/dL (8.4-10.2); Carbon Dioxide 23 mmol/L (22-30); Chloride 105 mmol/L (98-107); Glucose 205 mg/dL (74-99); Non-African American GFR(CKD) 34 (>60 ml/min/1.73 sqM); Potassium 3.9 mmol/L (3.5-5.1); Sodium 137 mmol/L (137-145); Total Bilirubin 0.6 mg/dL (0.2-1.3); Total Protein 6.7 g/dL (6.3-8.2)
[2023-06-17 21:12] LABS: INR 0.9 (<1.2); Partial Thromboplastin Time 22.8 sec (22.0-30.0); Prothrombin Time 10.1 sec (10.0-12.5)
[2023-06-17] MEDS ORDERED: ASPIRIN 325 MG TAB PO STA (22:24)
[2023-06-17] MEDS ORDERED: LABETALOL 5 MG/ML VIAL MDV IVP STA (22:54)
[2023-06-18 06:13] LABS: Glucose,Whole Blood 125 mg/dL (70-110)
[2023-06-18] MEDS: SODIUM CHLORIDE 0.9% 1,000 ML IV SCH ×4 (06:38→16:26)
[2023-06-18] MEDS: ASPIRIN 325 MG TAB PO SCH (08:31)
[2023-06-18] MEDS: METOPROLOL TARTRATE 25 MG TAB PO SCH ×2 (08:32→21:37)
[2023-06-18] MEDS ORDERED: DEXTROSE 50% SYRINGE 50 ML IVP PRN ×2 (09:12)
[2023-06-18] MEDS: LEVOTHYROXINE 137 MCG TAB PO SCH (09:34)
[2023-06-18 11:36] LABS: Appearance,Urine Clear (Clear); Bilirubin,Urine Negative (Negative); Blood,Urine Trace (Negative); Color,Urine Colorless; Glucose,Urine (UA) 1+ (Negative); Ketones,Urine Negative (Negative); Leukocyte Esterase,Urine Negative (Negative); Nitrite,Urine Negative (Negative); Protein,Urine 1+ (Negative); RBC,Urine <1 /hpf (0-5); Specific Gravity,Urine 1.021 (1.001-1.035); Urobilinogen,Urine <2.0 mg/dL (<2.0); WBC,Urine <1 /hpf (0-5)
[2023-06-18 11:48] LABS: Amphetamine Screen,Urine Not Detected (NotDetected); Barbiturate Screen,Urine Not Detected (NotDetected); Benzodiazepines Screen,Urine Not Detected (NotDetected); Cocaine Screen,Urine Not Detected (NotDetected); Methadone Screen, Urine Not Detected (NotDetected); Opiate Screen,Urine Not Detected (NotDetected); Oxycodone Screen, Urine Not Detected (NotDetected); Phencyclidine Screen,Urine Not Detected (NotDetected); Tricyclic Antidepressant,Urine Not Detected (NotDetected); Urn Cannabinoid Scrn Not Detected (NotDetected)
[2023-06-18 11:51] LABS: Glucose,Whole Blood 149 mg/dL (70-110)
[2023-06-18] MEDS: INSULIN ASPART (NovoLOG) 100 UNIT/ML VIAL SQ SCH ×3 (11:56→21:37)
[2023-06-18 13:26] LABS: Chol/HDL Ratio 4.22 Ratio; LDL Cholesterol,Calculated 86.8 mg/dL (0.0-131.0)
--- NOTE | 2023-06-18 14:06 | P.HPIM ---
History of Present Illness H&P Date: 06/18/23 History of present illness; patient is 67-year-old gentleman past medical histor y significant for hypothyroidism, insulin-dependent diabetes mellitus who was sent as a transfer from [facility] for evaluation for encephalopathy and rule out of stroke. Most of the history is provided by patient's was at the bedside, according to her patient woke up and was very confused and lethargic. Patient was trying to get out of the bed and was leaning towards right side. There was no complete of any slurred speech. No complain of facial droop no weakness of any extremity. Because of the symptoms, EMS was called and patient was brought to the ER of [facility], CT head without contrast was negative for any stroke, CTA negative for any significant stenosis of intracranial vessels Initial lab work done in the ER showed WBC 4.8, hemoglobin 14.6, platelet count 270, sodium 137, potassium 3.9, BUN 32, CREATININE 1.98. Patient was admitted to medicine service REVIEW OF SYSTEMS: CONSTITUTIONAL: No fever, lethargy and weakness HEENT: No recent visual problems or hearing problems. Denied any sore throat. CARDIOVASCULAR: No chest pain, orthopnea, PND, no palpitations, no syncope. PULMONARY: No shortness of breath, no cough, no hemoptysis. GASTROINTESTINAL: No diarrhea, no nausea, no vomiting, no abdominal pain. NEUROLOGICAL: No headaches, no weakness, no numbness. HEMATOLOGICAL: Denies any bleeding or petechiae. GENITOURINARY: Denies any burning micturition, frequency, or urgency. MUSCULOSKELETAL/RHEUMATOLOGICAL: Denies any joint pain, swelling, or any muscle pain. ENDOCRINE: Denies any polyuria or polydipsia. The rest of the 14-point review of systems is negative. PHYSICAL EXAMINATION: GENERAL: The patient is alert and oriented x2, not in any acute distress. Well developed, well nourished. HEENT: Pupils are round and equally reacting to light. EOMI. No scleral icterus. No conjunctival pallor. Normocephalic, atraumatic. No pharyngeal erythema. No thyromegaly. CARDIOVASCULAR: S1 and S2 present. No murmurs, rubs, or gallops. PULMONARY: Chest is clear to auscultation, no wheezing or crackles. ABDOMEN: Soft, nontender, nondistended, normoactive bowel sounds. No palpable organomegaly. MUSCULOSKELETAL: Left BKA EXTREMITIES: No cyanosis, clubbing, or pedal edema. NEUROLOGICAL: Gross neurological examination did not reveal any focal deficits. SKIN: No rashes. Assessment and plan Acute encephalopathy Acute CVA Hypothyroidism Insulin-dependent diabetes mellitus Dementia Monitor vital signs Monitor CBC Monitor CMP Continue telemetry monitoring Continue neuro checks Allow permissive hypertension for the next 24 hours Ordered 2-D echo Neurology consult Speech, PT and OT evaluation Resume home meds Labs and medication were reviewed.. Continue same treatment. Continue with symptomatic treatment. Resume home medication. Monitor labs and vitals. DVT and GI prophylaxis. Further recommendations as per clinical course of the patient Dictation was produced using Denator dictation software. please excuse any grammatical, word or spelling errors. Past Medical History Past Medical History: CVA/TIA, Diabetes Mellitus, Hyperlipidemia, Hypertension, Memory Impairment, Osteoarthritis (OA), Thyroid Disorder Additional Past Medical History / Comment(s): stroke age 51 left with short term memory problems. 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 Past Psychological History: Depression Additional Psychological History / Comment(s): lives with the and the family home. Medically disabled. Tobacco smoker until 2007. Alcohol abuse until 2007 which is when he had a leg amputation. Pet dog in the home. No experience. No extensive travel. [employer] Smoking Status: Former smoker Past Alcohol Use History: Occasional Past Drug Use History: None Reported - Past Family History Mother Family Medical History: COPD Additional Family Medical History / Comment(s): age 83 from COPD Father Family Medical History: Coronary Artery Disease (CAD), Diabetes Mellitus, Myocardial Infarction (NE) Additional Family Medical History / Comment(s): age 68 approx from [place] Medications and Allergies Home Medications Medication Instructions Recorded Confirmed Type INSULIN ASPART (NovoLOG) [NovoLOG See Protocol SQ TID-W/MEALS PRN 12/17/15 06/17/23 History (formulary)] Metoprolol Tartrate [Lopressor] 25 mg PO BID 12/17/15 06/17/23 History Levothyroxine Sodium [Synthroid] 137 mcg PO DAILY 12/08/17 06/17/23 History Clopidogrel [Plavix] 75 mg PO DAILY #30 tab 12/16/17 06/17/23 Rx ALPRAZolam [Xanax] 0.25 mg PO DAILY PRN 06/17/23 06/17/23 History Aspirin EC [Ecotrin Low Dose] 81 mg PO DAILY 06/17/23 06/17/23 History Donepezil [Aricept] 10 mg PO HS 06/17/23 06/17/23 History Glucagon Emergency Kit 1 mg IM ONCE PRN 06/17/23 06/17/23 History Insulin Glargine,Hum.rec.anlog 35 units SQ HS 06/17/23 06/17/23 History [Lantus Solostar Pen] Vitamin B Complex With Vitamin C 1 tab PO DAILY 06/17/23 06/17/23 History (Unknown Strength) traZODone HCL [Desyrel] 50 mg PO HS 06/17/23 06/17/23 History Allergies Allergy/AdvReac Type Severity Reaction Status Date / Time No Known Allergies Allergy Verified 06/17/23 20:36 Physical Exam Vitals: Vital Signs Temp Pulse Pulse Resp BP BP Pulse Ox 06/18/23 08:27 96 06/18/23 08:20 98.0 F 82 18 164/77 97 06/18/23 03:43 82 16 159/81 98 06/18/23 02:00 16 06/18/23 01:44 98.5 F 88 16 168/82 98 06/18/23 01:08 89 18 134/80 98 06/17/23 22:56 78 18 188/105 98 06/17/23 22:38 195/112 06/17/23 22:30 204/66 06/17/23 20:30 175/110 06/17/23 20:14 98.6 F 74 18 207/112 98 Intake and Output 06/17/23 06/18/23 06/18/23 22:59 06:59 14:59 Other: Voiding Method Diaper # Voids 2 # Bowel Movements 1 Weight 77.111 kg 77.111 kg Results CBC & Chem 7: 10/28/23 20:44 06/17/23 20:44 Labs: Abnormal Lab Results - Last 24 Hours (Table) 06/17/23 06/17/23 06/17/23 Range/Units 20:44 20:44 20:47 Lymphocytes # 0.9 L (1.0-4.8) k/uL BUN 32 H (9-20) mg/dL Creatinine 1.98 H (0.66-1.25) mg/dL Glucose 205 H (74-99) mg/dL POC Glucose (mg/dL) 180 H (70-110) mg/dL 06/18/23 Range/Units 06:12 Lymphocytes # (1.0-4.8) k/uL BUN (9-20) mg/dL Creatinine (0.66-1.25) mg/dL Glucose (74-99) mg/dL POC Glucose (mg/dL) 125 H (70-110) mg/dL Thrombosis Risk Factor Assmnt - Choose All That Apply Any of the Below Risk Factors Present?: Yes Each Risk Factor Represents 2 Points: Age 61-74 years Thrombosis Risk Factor Assessment Total Risk Factor Score: 2 Thrombosis Risk Factor Assessment Level: Low Risk
[2023-06-18] MEDS: CLOPIDOGREL 75 MG TAB PO SCH (16:25)
[2023-06-18 16:41] LABS: Glucose,Whole Blood 403 mg/dL (70-110)
[2023-06-18 20:05] LABS: Glucose,Whole Blood 383 mg/dL (70-110)
[2023-06-18] MEDS: DONEPEZIL 10 MG TAB PO SCH (21:37)
[2023-06-18] MEDS: INSULIN DETEMIR (LEVEMIR) 100 UNIT/ML SYR SQ SCH (21:37)
[2023-06-19 06:00] LABS: Glucose,Whole Blood 44 mg/dL (70-110)
[2023-06-19 06:15] LABS: Glucose,Whole Blood 61 mg/dL (70-110)
[2023-06-19 06:38] LABS: Glucose,Whole Blood 91 mg/dL (70-110)
[2023-06-19] MEDS: LEVOTHYROXINE 137 MCG TAB PO SCH (06:56)
[2023-06-19] MEDS: INSULIN ASPART (NovoLOG) 100 UNIT/ML VIAL SQ SCH ×4 (06:57→21:13)
[2023-06-19] MEDS: SODIUM CHLORIDE 0.9% 1,000 ML IV SCH ×3 (07:50→16:29)
[2023-06-19] MEDS: METOPROLOL TARTRATE 25 MG TAB PO SCH ×2 (08:57→21:08)
[2023-06-19] MEDS: CLOPIDOGREL 75 MG TAB PO SCH (08:57)
[2023-06-19] MEDS: ASPIRIN 325 MG TAB PO SCH (08:57)
[2023-06-19] MEDS: INSULIN DETEMIR (LEVEMIR) 100 UNIT/ML SYR SQ SCH (08:57)
--- NOTE | 2023-06-19 09:28 | P.CNNES ---
History of Present Illness Consult date: 06/18/23 Requesting physician: Virgilio Caballero Reason for Consult: CVA History of Present Illness: Patient is a 67-year-old right-handed male with history of diabetes, dementia, left BKA, came to the hospital by ambulance yesterday at 8 PM as a transfer from [facility] for neurological evaluation. Patient's was present, who provided most of the history. Patient has history of advanced dementia. He lives with his at home, and he does have a prosthetic leg, in which he walks with a cane. Patient's symptoms of dementia started after he got left leg amputated and in 2008, but has particularly got worse in the last 4-5 years, when he would get quite disoriented when he was hospitalized. Patient's dementia seems to be progressively getting worse. Last month he could not follow commands. Some days he knows his kids and other days he does not know them at all. Even at this time patient is not able to tell me name of his , and states her name is "kelvin". He did tell that she is to him. Patient is worse when he is out of his normal routine. Patient's believes that for the last month he has much deteriorated. She brought him to the hospital because he could not even get out of bed. She placed him on the edge of the bed and he appeared that he would fall to the right. And he started having some nosebleeds. She mentioned that he was more lethargic, wanted to sleep all day. He was not talking, could not respond well. He would be talking in the not talking. She did not notice any facial droop or any focal weakness of the extremities. He was more confused than usual. Therefore she called 911. Patient was first taken to the [facility] but then transferred here. EMS flow sheet not available in the chart. Vital signs arrival blood pressure 207/112, pulse rate 74 temperature 98.6. The blood pressure did improve to 175/110. EKG shows sinus rhythm. Blood test shows normal CBC PT/PTT, normal electrolytes, BU and 32, creatinine 1.98. Hepatic panel is normal troponin negative ammonia normal. UA negative urine drug screen negative, blood alcohol level negative. Home medications include insulin, metoprolol, levothyroxine, Plavix 75 mg, aspirin 81 mg, Xanax, glucagon, trazodone 50 mA, Aricept 10 mg. he takes medication regularly. Patient's records from [facility] include: EKG shows normal sinus rhythm chest x-ray showed no acute findings CT head without contrast revealed mild to moderate small vessel disease. No evidence of acute intracranial process. CTA of head and neck are normal. Troponin borderline 0.030 TSH normal 0.5 to magnesium 2.0, CRP 0.73, CMP with normal electrolytes, hepatic panel normal, BUN 31, creatinine 2.1 BNP 179/100 PTT normal INR 0.96 CBC normal UA negative urine drug screen negative for any drugs. Coronal virus influenza screen and RSV negative Patient has history of diabetes for about 15-20 years, also has hypertension. He has smoked for 34 years, started with one pack per day, and then ended up with 3 packs per day. He quit smoking in 2008. Patient has history of a mild stroke in 2006 which recovered well with no residual deficits. Patient has history of left BKA Review of Systems Constitutional: Denies chills, Denies fever Eyes: denies blurred vision, denies diplopia, denies pain Ears: bilateral: decreased hearing, deny: earache Ears, nose, mouth and throat: Denies headache, Denies sore throat Cardiovascular: Denies chest pain, Denies shortness of breath Respiratory: Reports cough, Denies excessive sputum Gastrointestinal: Reports diarrhea, Denies abdominal pain, Denies nausea, Denies vomiting Genitourinary: Reports incontinence (At night), Reports nocturia Musculoskeletal: Denies low back pain, Denies myalgias, Denies neck pain Integumentary: Denies pruritus, Denies rash Neurological: Reports as per HPI Psychiatric: Reports depression, Denies anxiety Endocrine: Reports fatigue, Denies weight change Hematologic/Lymphatic: Reports easy bleeding, Reports easy bruising Past Medical History Past Medical History: CVA/TIA, Diabetes Mellitus, Hyperlipidemia, Hypertension, Memory Impairment, Osteoarthritis (OA), Thyroid Disorder Additional Past Medical History / Comment(s): stroke age 51 left with short term memory problems. 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 Past Psychological History: Depression Additional Psychological History / Comment(s): lives with the and the family home. Medically disabled. Tobacco smoker until 2007. Alcohol abuse until 2007 which is when he had a leg amputation. Pet dog in the home. No experience. No extensive travel. Certified [employer] Smoking Status: Former smoker Past Alcohol Use History: Occasional Past Drug Use History: None Reported - Past Family History Mother Family Medical History: COPD Additional Family Medical History / Comment(s): age 83 from COPD Father Family Medical History: Coronary Artery Disease (CAD), Diabetes Mellitus, Myocardial Infarction (CT) Additional Family Medical History / Comment(s): age [address] Medications and Allergies Home Medications Medication Instructions Recorded Confirmed Type INSULIN ASPART (NovoLOG) [NovoLOG See Protocol SQ TID-W/MEALS PRN 12/17/15 06/17/23 History (formulary)] Metoprolol Tartrate [Lopressor] 25 mg PO BID 12/17/15 06/17/23 History Levothyroxine Sodium [Synthroid] 137 mcg PO DAILY 12/08/17 06/17/23 History Clopidogrel [Plavix] 75 mg PO DAILY #30 tab 12/16/17 06/17/23 Rx ALPRAZolam [Xanax] 0.25 mg PO DAILY PRN 06/17/23 06/17/23 History Aspirin EC [Ecotrin Low Dose] 81 mg PO DAILY 06/17/23 06/17/23 History Donepezil [Aricept] 10 mg PO HS 06/17/23 06/17/23 History Glucagon Emergency Kit 1 mg IM ONCE PRN 06/17/23 06/17/23 History Insulin Glargine,Hum.rec.anlog 35 units SQ HS 06/17/23 06/17/23 History [Lantus Solostar Pen] Vitamin B Complex With Vitamin C 1 tab PO DAILY 06/17/23 06/17/23 History (Unknown Strength) traZODone HCL [Desyrel] 50 mg PO HS 06/17/23 06/17/23 History Allergies Allergy/AdvReac Type Severity Reaction Status Date / Time No Known Allergies Allergy Verified 06/17/23 20:36 Physical Examination - Vital Signs Vital Signs: Vital Signs Temp Pulse Pulse Resp BP BP Pulse Ox 06/18/23 09:56 82 18 06/18/23 08:27 96 06/18/23 08:20 98.0 F 82 18 164/77 97 06/18/23 03:43 82 16 159/81 98 06/18/23 02:00 16 06/18/23 01:44 98.5 F 88 16 168/82 98 06/18/23 01:08 89 18 134/80 98 06/17/23 22:56 78 18 188/105 98 06/17/23 22:38 195/112 06/17/23 22:30 204/66 06/17/23 20:30 175/110 06/17/23 20:14 98.6 F 74 18 207/112 98 Intake and Output 06/17/23 06/18/23 06/18/23 22:59 06:59 14:59 Other: Voiding Method Diaper Diaper External Catheter # Voids 2 1 # Bowel Movements 1 1 Weight 77.111 kg 77.111 kg Patient is an elderly male, pleasant D confused, in no acute distress. He frequently smiles, which almost looks like he is crying. Patient is alert awake, fairly disoriented. Patient could not tell the current month or the year. He does know that he lives in [facility]. He states that he was born on [birth year], but could not tell the year or his 80s. He could not tell name of the president. Speech and language functions are normal. Patient was not able to name simple objects like glasses, or pen, and per patient's , it is baseline. He could not repeat. No dysarthria. Attention, concentration is impaired and fund of knowledge is severely limited. Patient would frequently say "I'm not retarded". He frequently says something about $20, which his even does not know what he means by it. On cranial nerve examination, pupils are equal, round and reacting to light, visual dillard could not be tested reliably. He does blink to visual threat bilaterally. Extraocular muscles are intact with no nystagmus. Patient has left facial droop noticeable at times. His tongue protrudes to the midline. Palatal elevation and sensation normal, hearing is slightly decreased and shoulder shrug normal, facial sensation normal. On muscle strength testing, there is no pronator drift and the strength is (right/left) deltoid 5/5-ended clicks, biceps 5/5, triceps 5/5, wash tank tender 5-/5-. In the lower limbs hip flexion is 5/5, knee extension 5/5, ankle dorsiflexion 2/BKA. 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 Deep tendon reflexes are almost absent, plantar is flat on the right. Sensory to touch is equal with no neglect on double simultaneous stimulation. Cerebellar function showed no ataxia for [id number] testing. Cannot check [id number] testing on either side. Tone and bulk of muscles normal. Gait deferred.. On general examination, there is no carotid bruit or murmur, S1-S2 audible. Chest is clear on consultation. Abdomen is soft nontender. No organomegaly, bowel sounds present. Patient has left BKA. Results - Laboratory Findings CBC and BMP: 06/17/23 20:44 06/17/23 20:44 Abnormal Lab Findings: Abnormal Labs 06/17/23 06/17/23 06/17/23 20:44 20:44 20:47 Lymphocytes # 0.9 L BUN 32 H Creatinine 1.98 H Glucose 205 H POC Glucose (mg/dL) 180 H Urine Protein Urine Glucose (UA) Urine Blood 06/18/23 06/18/23 06:12 11:00 Lymphocytes # BUN Creatinine Glucose POC Glucose (mg/dL) 125 H Urine Protein 1+ H Urine Glucose (UA) 1+ H Urine Blood Trace H Assessment and Plan Assessment: * Possible CVA manifesting with mild left facial droop, worsening speech difficulty and postural instability. * Diabetes * Hypertension * Dyslipidemia * Advanced Dementia * Acute renal insufficiency, possible dehydration * History of CVA with no residual deficits * X tobacco use Plan: * Patient possibly had a small stroke. Patient has multiple vascular risk factors. * We will continue aspirin and Plavix. * Discussed with patient's about MRI of the brain, and patient would not be able to tolerate the MRI due to advanced dementia. She wanted to hold off on it. * 2-D echo with bubble study to rule out PFO * CTA head and neck showed: No large vessel stenosis or occlusion. CTA of the neck also normal. * Fasting a.m. lipid panel with cholesterol 141, LDL 86, HDL 33, triglycerides 104. Start Lipitor 20 mg daily. Patient not on statin at home. * Hemoglobin A1c * B12, folate, TSH * Optimize control of blood pressure. * Neuro checks every shift. * Telemetry monitoring rule out any arrhythmia * PT, OT, speech therapy * DVT prophylaxis: Lovenox 40 mg subcu daily. * Continue donepezil 10 mg daily for dementia. Consider adding Namenda. * Neurology will continue to follow. Thank you for the consult. Time with Patient: Greater than 30
[2023-06-19] MEDS ORDERED: ALPRAZolam 0.25 MG TAB PO PRN (10:04)
[2023-06-19] MEDS ORDERED: amLODIPine 5 MG TAB PO SCH (10:15)
[2023-06-19] MEDS: ENOXAPARIN 40 MG/0.4 ML SYRINGE SQ SCH (11:32)
[2023-06-19] MEDS: ATORVASTATIN 20 MG TAB PO SCH (11:32)
[2023-06-19 11:41] LABS: Glucose,Whole Blood 516 mg/dL (70-110)
[2023-06-19 11:44] LABS: Glucose,Whole Blood 485 mg/dL (70-110)
[2023-06-19 11:46] LABS: Chol/HDL Ratio 4.25 Ratio; LDL Cholesterol,Calculated 83.4 mg/dL (0.0-131.0)
[2023-06-19 14:48] VITALS: BMI 24.3
[2023-06-19 15:52] LABS: Blood Urea Nitrogen 23.5 mg/dL (9.0-27.0); Chloride 108 mmol/L (96-109); Glucose 158 mg/dL (70-110); Potassium 4.1 mmol/L (3.5-5.5); Sodium 143 mmol/L (135-145)
[2023-06-19 15:53] LABS: Calcium 8.9 mg/dL (8.7-10.3); Carbon Dioxide 14.4 mmol/L (21.6-31.8)
[2023-06-19 16:51] LABS: Glucose,Whole Blood 373 mg/dL (70-110)
--- NOTE | 2023-06-19 18:09 | P.PN ---
Subjective Progress Note Date: 06/19/23 Patient was seen for a follow-up. Patient is sitting in the recliner. Continues to be very confused. Objective - Vital Signs Vital signs: Vital Signs Temp 98.2 F 06/19/23 08:47 Pulse 66 06/19/23 14:56 Resp 18 06/19/23 14:56 BP 184/93 06/19/23 11:30 Pulse Ox 97 06/19/23 11:30 FiO2 Intake & Output 06/18/23 06/19/23 06/19/23 18:59 06:59 18:59 Intake Total 640 Output Total 450 200 800 Balance -450 -200 -160 Weight 77.111 kg Intake: Oral 640 Output: Urine 450 200 800 Other: Voiding Method Diaper Diaper Diaper External Catheter External Catheter External Catheter # Voids 2 2 0 # Bowel Movements 1 1 - Exam Examination unchanged. Still with significant aphasia, which is baseline, but worse lately. - Labs CBC & Chem 7: 06/17/23 20:44 06/19/23 06:50 Labs: Abnormal Lab Results - Last 24 Hours (Table) 06/18/23 06/18/23 06/19/23 Range/Units 16:38 20:04 05:58 POC Glucose (mg/dL) 403 H 383 H 44 L (70-110) mg/dL Hemoglobin A1c (<=6.0) % HDL Cholesterol (40.00-60.00) mg/dL 06/19/23 06/19/23 06/19/23 Range/Units 06:14 06:50 06:50 POC Glucose (mg/dL) 61 L (70-110) mg/dL Hemoglobin A1c 10.6 H (<=6.0) % HDL Cholesterol 33.40 L (40.00-60.00) mg/dL 06/19/23 06/19/23 Range/Units 11:38 11:42 POC Glucose (mg/dL) 516 H 485 H (70-110) mg/dL Hemoglobin A1c (<=6.0) % HDL Cholesterol (40.00-60.00) mg/dL Assessment and Plan Assessment: * Possible CVA manifesting with mild left facial droop, worsening speech difficulty and postural instability. * Diabetes * Hypertension * Dyslipidemia * Advanced Dementia * Acute renal insufficiency, possible dehydration * History of CVA with no residual deficits * X tobacco use Plan: * Patient possibly had a small stroke. Patient has multiple vascular risk factors. * We will continue aspirin and Plavix. We will decrease aspirin down to 81 mg daily. Continue Plavix 75 mg daily. Start Pepcid 20 mg twice a day for gastric ulcer prophylaxis. * Discussed with patient's about MRI of the brain, and patient would not be able to tolerate the MRI due to advanced dementia. She wanted to hold off on it. * 2-D echo with bubble study to rule out PFO completed, results pending. * CTA head and neck showed: No large vessel stenosis or occlusion. CTA of the neck also normal. * Fasting a.m. lipid panel with cholesterol 141, LDL 86, HDL 33, triglycerides 104. Start Lipitor 20 mg daily. Patient not on statin at home. * Hemoglobin A1c 10.6. Recommend optimize control of diabetes for target A1c <7.0. * B12 524, folate 25.5, TSH 1.10 * Optimize control of blood pressure. * Neuro checks every shift. * Telemetry monitoring so far showing sinus rhythm, sinus bradycardia sometimes going to 50s. * PT, OT, speech therapy * DVT prophylaxis: Lovenox 40 mg subcu daily. * Continue donepezil 10 mg daily for dementia. Patient has advanced dementia. We will start Namenda 5 mg twice a day.
--- NOTE | 2023-06-19 19:01 | CA ---
Transthoracic Echo Report Name: Jose Riojas Age: 67 Gender: M : 1955 Exam Date: 06/19/2023 10:48 Exam Location: [facility] Ht (in): 70 Wt (lb): 170 Ordering Physician: Virgilio Caballero DO Attending/Referring Phys: [id number], Ada Overedger Pam Saldivar RDCS Procedure CPT: Indications: Thrombus Cardiac Hx: Technical Quality: Fair Contrast 1: Total Dose (mL): Contrast 2: Total Dose (mL): MEASUREMENTS (Male / Female) Normal Values 2D ECHO LV Diastolic Diameter PLAX 3.9 cm 4.2 - 5.9 / 3.9 - 5.3 cm LV Systolic Diameter PLAX 2.1 cm IVS Diastolic Thickness 1.4 cm 0.6 - 1.0 / 0.6 - 0.9 cm LVPW Diastolic Thickness 1.4 cm 0.6 - 1.0 / 0.6 - 0.9 cm LV Relative Wall Thickness 0.7 RV Internal Dim ED PLAX 3.7 cm LA Volume 51.9 cm??? 18 - 58 / 22 - 52 cm??? LA Volume Index 26.5 cm???/m??? 16 - 28 cm???/m??? M-MODE Aortic Root Diameter MM 3.4 cm LA Systolic Diameter MM 4.0 cm LA Ao Ratio MM 1.2 AV Cusp Separation MM 1.9 cm DOPPLER AV Peak Velocity 117.5 cm/s AV Peak Gradient 5.5 mmHg AV Mean Velocity 86.6 cm/s AV Mean Gradient 3.2 mmHg AV Velocity Time Integral 30.3 cm LVOT Peak Velocity 83.8 cm/s LVOT Peak Gradient 2.8 mmHg LVOT Velocity Time Integral 19.8 cm MV Area PHT 2.6 cm??? Mitral E Point Velocity 65.3 cm/s Mitral A Point Velocity 87.8 cm/s Mitral E to A Ratio 0.7 MV Deceleration Time 286.6 ms MV E' Velocity 3.8 cm/s Mitral E to MV E' Ratio 17.2 FINDINGS Left Ventricle Mildly increased septal wall thickness. Left ventricular cavity size normal. Normal left ventricular systolic function with no obvious regional wall motion abnormalities. Left ventricular ejection fraction is estimated at 55-60 %. Right Ventricle Mild right ventricular dilatation. Right ventricular systolic pressure within normal limits. Right Atrium Normal right atrial size. Left Atrium Normal left atrial size. Mitral Valve Structurally normal mitral valve. Mild mitral regurgitation. Aortic Valve No aortic valve stenosis or regurgitation. Tricuspid Valve Structurally normal tricuspid valve. Trace tricuspid regurgitation. Pulmonic Valve Pulmonic valve not well visualized. Pericardium No pericardial effusion. Aorta Normal size aortic root and proximal ascending aorta. CONCLUSIONS 1. Normal left ventricle size and systolic function 2. Mild mitral regurgitation Previewed by: Dr. Gogo Jim MD (Electronically Signed) Final Date: 19 June 2023 19:00
--- NOTE | 2023-06-19 19:56 | P.PN ---
Progress Note - Text Progress Note Date: 06/19/23 History of present illness; patient is 67-year-old gentleman past medical hi story significant for hypothyroidism, insulin-dependent diabetes mellitus who was sent as a transfer from [facility] for evaluation for encephalopathy and rule out of stroke. Most of the history is provided by patient's was at the bedside, according to her patient woke up and was very confused and lethargic. Patient was trying to get out of the bed and was leaning towards right side. There was no complete of any slurred speech. No complain of facial droop no weakness of any extremity. Because of the symptoms, EMS was called and patient was brought to the ER of [facility], CT head without contrast was negative for any stroke, CTA negative for any significant stenosis of intracranial vessels Initial lab work done in the ER showed WBC 4.8, hemoglobin 14.6, platelet count 270, sodium 137, potassium 3.9, BUN 32, CREATININE 1.98. Patient was admitted to medicine service June 19: I assumed care of the patient today. at the bedside. Patient is dementia significantly advanced. Patient presented after she was not able to get out of bed. Was falling over to the left side. Was sleepy all day. Speech was also off. Patient's mother is also poor to the left. Still present. But overall patient more awake. Code status is DO NOT RESUSCITATE. I saw the patient this afternoon. 2-D echo is pending. Patient not a candidate for MRI. Active Medications Alprazolam (Alprazolam 0.25 Mg Tab) 0.25 mg PO DAILY PRN PRN Reason: Anxiety Amlodipine Besylate (Amlodipine 5 Mg Tab) 5 mg PO DAILY [facility] Last Admin: 06/19/23 11:32 Dose: 5 mg Aspirin (Aspirin 81 Mg) 81 mg PO DAILY [facility] Atorvastatin Calcium (Atorvastatin 20 Mg Tab) 20 mg PO DAILY [facility] Last Admin: 06/19/23 11:32 Dose: 20 mg Clopidogrel Bisulfate (Clopidogrel 75 Mg Tab) 75 mg PO DAILY [facility] Last Admin: 06/19/23 08:57 Dose: 75 mg Dextrose/Water (Dextrose 50% Syringe 50 Ml) 25 ml IVP PER PROTOCOL PRN; Protocol PRN Reason: Hypoglycemia Dextrose/Water (Dextrose 50% Syringe 50 Ml) 50 ml IVP PER PROTOCOL PRN; Protocol PRN Reason: Hypoglycemia Donepezil HCl (Donepezil 10 Mg Tab) 10 mg PO HS [facility] Last Admin: 06/18/23 21:37 Dose: 10 mg Enoxaparin Sodium (Enoxaparin 40 Mg/0.4 Ml Syringe) 40 mg SQ DAILY [facility] Last Admin: 06/19/23 11:32 Dose: 40 mg Famotidine (Famotidine 20 Mg Tab) 20 mg PO HS [facility] Sodium Chloride (Saline 0.9%) 1,000 mls @ 100 mls/hr IV .Q10H [facility] Last Admin: 06/19/23 16:29 Dose: Not Given Insulin Aspart (Insulin Aspart (Novolog) 100 Unit/Ml Vial) 0 unit SQ ACHS [facility]; Protocol Last Admin: 06/19/23 17:03 Dose: 5 unit Insulin Detemir (Insulin Detemir (Levemir) 100 Unit/Ml Syr) 12 unit 0.15 unit/kg (12 unit) SQ BID@0700,2100 [facility] Last Admin: 06/19/23 08:57 Dose: 12 unit Levothyroxine Sodium (Levothyroxine 137 Mcg Tab) 137 mcg PO 0630 [facility] Last Admin: 06/19/23 06:56 Dose: Not Given Memantine (Memantine 5 Mg Tab) 5 mg PO BID [facility] Metoprolol Tartrate (Metoprolol Tartrate 25 Mg Tab) 25 mg PO BID [facility] Last Admin: 06/19/23 08:57 Dose: 25 mg On examination: VITAL SIGNS: [Afebrile, 66, 18, 140/93, 97% room air] GENERAL APPEARANCE: Sitting up in a recliner. Comfortable. Awake. HEENT: Normal external appearance of nose and ear. Oral cavity normal EYES: Pupils equal. Conjunctiva normal. NECK: JVD not raised. Mass not palpable. RESPIRATORY: Respiratory effort normal. Lungs is breath sounds CARDIOVASCULAR: First and second sounds normal. No edema. ABDOMEN: Soft. Liver and spleen not palpable. No tenderness. No mass palpable. PSYCHIATRY: Answering occasional question. Confused. NEUROLOGICAL: Mouth slightly pulled to the left side INVESTIGATIONS, reviewed in the clinical context: June 19: Potassium 4.1 BUN 23.5 creatinine 2.1 LDL 83.4 B12 524 folate 25.5 TSH 1.1 2-D echocardiogram: EF 55-60%. Assessment plan: -Probable acute stroke. Aspirin. Plavix. Unable to do MRI. -Severe cognitive impairment, likely advanced Alzheimer's dementia B12, TSH, normal Aricept and Namenda started by neurology -Essential hypertension, uncontrolled Amlodipine 5 mg twice a day Lopressor 25 mg twice a day -Chronic gait dysfunction, uses a cane at the baseline -Hypothyroidism Synthroid 137 g a day -DO NOT RESUSCITATE Discussed at length with patient's at the bedside. Plan for possible DC tomorrow.
[2023-06-19] MEDS ORDERED: HALOPERIDOL LACTATE 5 MG/ML 1 ML VIAL IM STA (19:59)
[2023-06-19 20:42] LABS: Glucose,Whole Blood 105 mg/dL (70-110)
[2023-06-19] MEDS ORDERED: traZODone HCL 50 MG TAB PO SCH (21:00)
[2023-06-19] MEDS ORDERED: INSULIN DETEMIR (LEVEMIR) 100 UNIT/ML SYR SQ SCH (21:00)
[2023-06-19] MEDS ORDERED: FAMOTIDINE 20 MG TAB PO SCH (21:00)
[2023-06-19] MEDS: amLODIPine 5 MG TAB PO SCH (21:08)
[2023-06-19] MEDS: MEMANTINE 5 MG TAB PO SCH (21:08)
[2023-06-19] MEDS: DONEPEZIL 10 MG TAB PO SCH (21:13)
[2023-06-20 05:12] VITALS: RESP 15
[2023-06-20 06:05] LABS: Glucose,Whole Blood 101 mg/dL (70-110)
[2023-06-20] MEDS: INSULIN ASPART (NovoLOG) 100 UNIT/ML VIAL SQ SCH ×2 (06:08→12:10)
[2023-06-20] MEDS: LEVOTHYROXINE 137 MCG TAB PO SCH (06:12)
[2023-06-20] MEDS ORDERED: ASPIRIN 81 MG PO SCH (09:00)
[2023-06-20] MEDS: CLOPIDOGREL 75 MG TAB PO SCH (09:29)
[2023-06-20] MEDS: METOPROLOL TARTRATE 25 MG TAB PO SCH (09:29)
[2023-06-20] MEDS: amLODIPine 5 MG TAB PO SCH (09:29)
[2023-06-20] MEDS: ENOXAPARIN 40 MG/0.4 ML SYRINGE SQ SCH (09:30)
[2023-06-20] MEDS: MEMANTINE 5 MG TAB PO SCH (09:30)
[2023-06-20] MEDS: ATORVASTATIN 20 MG TAB PO SCH (09:30)
[2023-06-20 11:04] LABS: ALT 28 U/L (4-49); AST 43 U/L (17-59); African American GFR (CKD) 42 (>60 ml/min/1.73 sqM); Albumin 3.4 g/dL (3.5-5.0); Alkaline Phosphatase 75 U/L (38-126); Anion Gap 10 mmol/L; Blood Urea Nitrogen 21 mg/dL (9-20); Calcium 8.9 mg/dL (8.4-10.2); Carbon Dioxide 21 mmol/L (22-30); Chloride 105 mmol/L (98-107); Glucose 250 mg/dL (74-99); Non-African American GFR(CKD) 36 (>60 ml/min/1.73 sqM); Sodium 136 mmol/L (137-145); Total Bilirubin 0.9 mg/dL (0.2-1.3); Total Protein 6.4 g/dL (6.3-8.2)
[2023-06-20 11:10] LABS: HCT 44.5 % (39.0-53.0); HGB 15.1 gm/dL (13.0-17.5); MCH 30.7 pg (25.0-35.0); MCV 90.2 fL (80.0-100.0); Mean Platelet Volume 7.1; Platelet Count 267 k/uL (150-450); RBC 4.94 m/uL (4.30-5.90); RDW 14.2 % (11.5-15.5)
[2023-06-20 12:02] LABS: Glucose,Whole Blood 386 mg/dL (70-110)
[2023-06-20 12:14] VITALS: BP 163/81; PULSE 78; TEMP 96.7
--- NOTE | 2023-06-20 19:37 | P.DS ---
Providers Date of admission: 06/17/23 22:24 Expected date of discharge: 06/20/23 Attending physician: Michael Marie Consults: 06/17/23 22:24 Consult Physician Routine Consulting Provider: Linus Batista Consult Reason/Comments: cva Do you want consulting provider notified?: Yes Primary care physician: [facility] Course: History of present illness; patient is 67-year-old gentleman past medical history significant for hypothyroidism, insulin-dependent diabetes mellitus who was sent as a transfer from [facility] for evaluation for encephalopathy and rule out of stroke. Most of the history is provided by patient's was at the bedside, according to her patient woke up and was very confused and lethargic. Patient was trying to get out of the bed and was leaning towards right side. There was no complete of any slurred speech. No complain of facial droop no weakness of any extremity. Because of the symptoms, EMS was called and patient was brought to the ER of [facility], CT head without contrast was negative for any stroke, CTA negative for any significant stenosis of intracranial vessels Initial lab work done in the ER showed WBC 4.8, hemoglobin 14.6, platelet count 270, sodium 137, potassium 3.9, BUN 32, CREATININE 1.98. Patient was admitted to medicine service June 19: I assumed care of the patient today. at the bedside. Patient is dementia significantly advanced. Patient presented after she was not able to get out of bed. Was falling over to the left side. Was sleepy all day. Speech was also off. Patient's mother is also poor to the left. Still present. But overall patient more awake. Code status is DO NOT RESUSCITATE. I saw the patient this afternoon. 2-D echo is pending. Patient not a candidate for MRI. June 20: Sitting up in a recliner. Eating well. No new issues. Being discharged home. Follow-up in neurology outpatient. On examination: VITAL SIGNS: [6.7, 78, 15, 163.1, 97% room air] GENERAL APPEARANCE: Sitting up in a recliner. Eating HEENT: Normal external appearance of nose and ear. Oral cavity normal EYES: Pupils equal. Conjunctiva normal. NECK: JVD not raised. Mass not palpable. RESPIRATORY: Respiratory effort normal. Lungs is breath sounds CARDIOVASCULAR: First and second sounds normal. No edema. ABDOMEN: Soft. Liver and spleen not palpable. No tenderness. No mass palpable. PSYCHIATRY: Answering occasional question. Confused. NEUROLOGICAL: Mouth slightly pulled to the left side INVESTIGATIONS, reviewed in the clinical context: June 20: Potassium 4 creatinine 1.8. White count 8 hemoglobin 15.1 June 19: Potassium 4.1 BUN 23.5 creatinine 2.1 LDL 83.4 B12 524 folate 25.5 TSH 1.1 2-D echocardiogram: EF 55-60%. Assessment plan: -Probable acute stroke. Aspirin. Plavix. Unable to do MRI. -Severe cognitive impairment, likely advanced Alzheimer's dementia B12, TSH, normal Aricept and Namenda started by neurology -Essential hypertension, Amlodipine 5 mg twice a day Lopressor 25 mg twice a day -Chronic gait dysfunction, uses a cane at the baseline -Hypothyroidism Synthroid 137 g a day -DO NOT RESUSCITATE Disposition: Home Patient Condition at Discharge: Fair Plan - Discharge Summary Discharge Rx Participant: No New Discharge Prescriptions: New Memantine [Namenda] 5 mg PO BID #60 tab amLODIPine [Norvasc] 10 mg PO HS #30 tablet Famotidine [Pepcid] 20 mg PO HS #30 tab Atorvastatin [Lipitor] 20 mg PO DAILY #30 tab Continue INSULIN ASPART (NovoLOG) [NovoLOG (formulary)] See Protocol SQ TID-W/MEALS PRN PRN Reason: high blood sugar Metoprolol Tartrate [Lopressor] 25 mg PO BID Levothyroxine Sodium [Synthroid] 137 mcg PO DAILY Clopidogrel [Plavix] 75 mg PO DAILY #30 tab ALPRAZolam [Xanax] 0.25 mg PO DAILY PRN PRN Reason: Anxiety Vitamin B Complex With Vitamin C (Unknown Strength) 1 tab PO DAILY Aspirin EC [Ecotrin Low Dose] 81 mg PO DAILY Glucagon Emergency Kit 1 mg IM ONCE PRN PRN Reason: low blood sugar traZODone HCL [Desyrel] 50 mg PO HS Donepezil [Aricept] 10 mg PO HS Changed Insulin Glargine,Hum.rec.anlog [Lantus Solostar Pen] 30 units SQ HS #0 Discharge Medication List INSULIN ASPART (NovoLOG) [NovoLOG (formulary)] See Protocol SQ TID-W/MEALS PRN 12/17/15 [History] Metoprolol Tartrate [Lopressor] 25 mg PO BID 12/17/15 [History] Levothyroxine Sodium [Synthroid] 137 mcg PO DAILY 12/08/17 [History] Clopidogrel [Plavix] 75 mg PO DAILY #30 tab 12/16/17 [Rx] ALPRAZolam [Xanax] 0.25 mg PO DAILY PRN 06/17/23 [History] Aspirin EC [Ecotrin Low Dose] 81 mg PO DAILY 06/17/23 [History] Donepezil [Aricept] 10 mg PO HS 06/17/23 [History] Glucagon Emergency Kit 1 mg IM ONCE PRN 06/17/23 [History] Vitamin B Complex With Vitamin C (Unknown Strength) 1 tab PO DAILY 06/17/23 [History] traZODone HCL [Desyrel] 50 mg PO HS 06/17/23 [History] Atorvastatin [Lipitor] 20 mg PO DAILY #30 tab 06/20/23 [Rx] Famotidine [Pepcid] 20 mg PO HS #30 tab 06/20/23 [Rx] Insulin Glargine,Hum.rec.anlog [Lantus Solostar Pen] 30 units SQ HS #0 06/20/23 [Rx] Memantine [Namenda] 5 mg PO BID #60 tab 06/20/23 [Rx] amLODIPine [Norvasc] 10 mg PO HS #30 tablet 06/20/23 [Rx] Follow up Appointment(s)/Referral(s): Yuval Oliva MD [REFERRING] - 1 Week (Nurse reached offices after hours voicemail. Please call and schedule your follow up appointment. ) Myles Barnes MD [Primary Care Provider] - 1-2 days (Patient does not see this PCP. Please schedule a follow up appoinment with your family doctor. ) Patient Instructions/Handouts: Transient Ischemic Attack (DC), Hypertension (DC), Stroke (DC) Discharge/Stand Alone Forms: Who Do I Call?, Assisted Living Facilities, Community Resources, Help In The Home Discharge Disposition: HOME WITH HOME HEALTH SERVICES
== END 2023-06-20 15:44 | disposition home health service (06) | DRG 65 ==
LOC: EC 19:59 → 3SCARD 22:24
PROVIDERS: ADMIT Hospitalist; ATTEND Hospitalist
DX: I63.9 Cerebral infarction, unspecified (principal); G93.40 Encephalopathy, unspecified; F10.10 Alcohol abuse, uncomplicated; F32.A Depression, unspecified; I10 Essential (primary) hypertension; N28.9 Disorder of kidney and ureter, unspecified; E78.5 Hyperlipidemia, unspecified; E11.9 Type 2 diabetes mellitus without complications; E03.9 Hypothyroidism, unspecified; E86.0 Dehydration; R29.810 Facial weakness; Z66 Do not resuscitate; Z79.02 Long term (current) use of antithrombotics/antiplatelets; Z79.4 Long term (current) use of insulin; Z79.82 Long term (current) use of aspirin; Z79.890 Hormone replacement therapy; Z87.891 Personal history of nicotine dependence; Z79.899 Other long term (current) drug therapy; Z82.49 Family history of ischemic heart disease and other diseases of the circulatory system; Z82.5 Family history of asthma and other chronic lower respiratory diseases; Z83.3 Family history of diabetes mellitus; Z86.73 Personal history of transient ischemic attack (TIA), and cerebral infarction without residual deficits; Z89.512 Acquired absence of left leg below knee
CPT/HCPCS: 36415; 80048; 80053; 80061; 80306; 80320; 81001; 82140; 82607; 82746; 83036; 84443; 84484; 85025; 85027; 85610; 85730; 93005; 93306; 94760; 96361; 96374; 99285